=== PATIENT | female | born 1960 | race Hispanic/Latino ===

== ENCOUNTER 2018-08-11 08:27 | Emergency (ER) | payer SELFPAY ==
[2018-08-11 09:20] LABS: BASOPHILS % (AUTO) 0.4 % (0.0-5.0); EOSINOPHILS % (AUTO) 0.5 % (0.0-8.0); HEMATOCRIT 37.7 % (36-48); LYMPHOCYTES % (AUTO) 36.1 % (21.0-51.0); MEAN CORPUSCULAR HEMOGLOBIN 31.3 pg (27.0-33.0); MEAN CORPUSCULAR VOLUME 92.1 fL (79-99); MONOCYTES % (AUTO) 9.9 % (3.0-13.0); NEUTROPHILS % (AUTO) 53.1 % (40.0-77.0); NUCLEATED RED BLOOD CELLS 0.1 % (0.0-0.19); PLATELET COUNT (AUTO) 304 K/uL (130-400); RED BLOOD CELL COUNT(AUTO) 4.09 MIL/uL (4.00-5.50); RED CELL DISTRIBUTION WIDTH 14.5 % (11.0-15.5); WHITE BLOOD COUNT (AUTO) 6.7 K/uL (4.8-10.8)
[2018-08-11 09:30] LABS: INR 1.04 (0.85-1.15); PARTIAL THROMBOPLASTIN TIME 25.7 SEC (26.3-35.5); PROTHROMBIN TIME 10.9 SEC (9.6-11.6)
[2018-08-11 09:38] LABS: POTASSIUM 3.7 mmol/L (3.5-5.1)
[2018-08-11 09:43] LABS: ALBUMIN 3.2 g/dL (3.5-5.0); BILIRUBIN,TOTAL 0.4 mg/dL (0.2-1.0); TOTAL PROTEIN, SERUM 9.1 g/dL (6.0-8.3)
[2018-08-11] MEDS ORDERED: TRAMADOL HCL 50 MG TABLET ONE (09:58)
[2018-08-11 10:10] LABS: APPEARANCE,URINE Clear (CLEAR); BILIRUBIN,URINE Negative (NEGATIVE); COLOR,URINE Yellow (YELLOW); GLUCOSE, URINE (UA) Negative (NEGATIVE); KETONES,URINE Negative (NEGATIVE); LEUKOCYTE ESTERASE ,URINE Small (NEGATIVE); NITRATE,URINE Positive (NEGATIVE); OCCULT BLOOD,URINE Moderate (NEGATIVE); PH,URINE 6.5 (5.0-8.0); PROTEIN,URINE Negative (NEGATIVE)
[2018-08-11 10:35] LABS: BACTERIA,URINE Many /HPF (None Seen)
== END 2018-08-11 10:34 | disposition home or self-care (01) ==
LOC: EDH 08:27
DX: M71.21 Synovial cyst of popliteal space [Baker], right knee (principal); R03.0 Elevated blood-pressure reading, without diagnosis of hypertension; M13.861 Other specified arthritis, right knee; R79.89 Other specified abnormal findings of blood chemistry; Z90.710 Acquired absence of both cervix and uterus
CPT/HCPCS: 36415; 73562; 80053; 81001; 82550; 84484; 85025; 85610; 85730; 93005; 93971

== ENCOUNTER 2019-01-12 18:30 | Inpatient (IN) | payer OTHER ==
[~2019-01-12] VITALS: Ht 157.5 cm; Wt 87.4 kg
[~2019-01-12 18:30] MED LIST: ETOMIDATE 2 MG/ML 10 ML VIAL IVP ONE
[2019-01-12 18:56] LABS: BASOPHILS % (AUTO) 0.2 % (0.0-5.0); EOSINOPHILS % (AUTO) 0.2 % (0.0-8.0); HEMATOCRIT 37.2 % (36-48); LYMPHOCYTES % (AUTO) 6.4 % (21.0-51.0); MEAN CORPUSCULAR HEMOGLOBIN 31.1 pg (27.0-33.0); MEAN CORPUSCULAR HGB CONC 33.4 g/dL (32.0-36.0); MEAN CORPUSCULAR VOLUME 92.8 fL (79-99); MONOCYTES % (AUTO) 2.5 % (3.0-13.0); NEUTROPHILS % (AUTO) 90.7 % (40.0-77.0); PLATELET COUNT (AUTO) 290 K/uL (130-400); RED BLOOD CELL COUNT(AUTO) 4.01 MIL/uL (4.00-5.50); RED CELL DISTRIBUTION WIDTH 13.4 % (11.0-15.5); WHITE BLOOD COUNT (AUTO) 7.2 K/uL (4.8-10.8)
[2019-01-12 19:06] LABS: CARBON DIOXIDE 19 mmol/L (21-32); CHLORIDE 105 mmol/L (101-111); CREATININE 1.6 mg/dL (0.5-1.5); GLOMERULAR FILTR. RATE CALC 35 mL/min (>60); GLUCOSE,RANDOM 97 mg/dL (70-105); POTASSIUM 3.1 mmol/L (3.5-5.1); SODIUM SERUM 138 mmol/L (136-145); UREA NITROGEN, BLOOD 28 mg/dL (7-18)
[2019-01-12 19:19] LABS: ALANINE AMINOTRANSFERASE 69 U/L (12-78); ALBUMIN 2.7 g/dL (3.5-5.0); ASPARTATE AMINOTRANSFERASE 77 U/L (10-37); BILIRUBIN,TOTAL 0.6 mg/dL (0.2-1.0); CREATINE KINASE, TOTAL 62 U/L (21-232); MYOGLOBIN 58 ng/mL (10-92); TOTAL PROTEIN, SERUM 9.8 g/dL (6.0-8.3); TROPONIN I < 0.04 ng/mL (0.00-0.06)
[2019-01-12 19:23] LABS: INR 1.09 (0.85-1.15); PARTIAL THROMBOPLASTIN TIME 26.8 SEC (26.3-35.5); PROTHROMBIN TIME 11.4 SEC (9.6-11.6)
[2019-01-12] MEDS ORDERED: SODIUM CHLORIDE 0.9% 1000ML 2,000 ML IV ONE (19:40)
[2019-01-12] MEDS ORDERED: SODIUM CHLORIDE 0.9% 500ML 500 ML IV ONE (19:40)
[2019-01-12] MEDS ORDERED: CEFTRIAXONE SODIUM 1 GM ONE (19:41)
[2019-01-12] MEDS ORDERED: AZITHROMYCIN 250 MG TABLET PO ONE (19:52)
[2019-01-12 19:56] LABS: APPEARANCE,URINE CLOUDY (CLEAR); BILIRUBIN,URINE SMALL (NEGATIVE); COLOR,URINE YELLOW (YELLOW); GLUCOSE, URINE (UA) NEGATIVE (NEGATIVE); KETONES,URINE NEGATIVE (NEGATIVE); LEUKOCYTE ESTERASE ,URINE MODERATE (NEGATIVE); NITRATE,URINE POSITIVE (NEGATIVE); OCCULT BLOOD,URINE MODERATE (NEGATIVE); PROTEIN,URINE 30 mg/dL (NEGATIVE); UROBILINOGEN,URINE 0.2 mg/dL (0.2-1.0)
[2019-01-12 20:34] LABS: BACTERIA,URINE Moderate /HPF (None Seen); MUCUS,URINE Few LPF (None Seen); SQUAMOUS EPITHELIAL CELL,UR Moderate /HPF (0-2)
[2019-01-12] MEDS ORDERED: ACETAMINOPHEN EXTRA STRENGTH 500 MG TABLET ONE (20:56)
[2019-01-12] MEDS ORDERED: HYDRALAZINE HCL 20 MG/ML VIAL IV PRN (21:15)
[2019-01-12] MEDS ORDERED: ACETAMINOPHEN 325 MG TAB PO PRN (21:15)
[2019-01-12] MEDS ORDERED: MORPHINE SULFATE 4 MG/1ML SYG IV PRN (21:15)
[2019-01-12] MEDS ORDERED: ONDANSETRON HCL 4 MG/2 ML VIAL IV PRN (21:15)
[2019-01-12] MEDS ORDERED: CEFTRIAXONE SODIUM 1 GM IV SCH (21:15)
[2019-01-12] MEDS: AZITHROMYCIN 500MG+NS 250ML 250 ML IV SCH (21:45)
[2019-01-12 22:26] VITALS: BP 107/52
[2019-01-12] MEDS: SODIUM CHLORIDE 0.9% 1000ML 1,000 ML IV SCH (22:28)
[2019-01-13] VITALS (51 sets, daily range): BP systolic 66–167; BP diastolic 42–120
[2019-01-13] MEDS ORDERED: IPRATROPIUM/ALBUTEROL SULFATE 3 ML SOLUTION IH ONE (01:12)
[2019-01-13] MEDS: POTASSIUM CHLORIDE 20MEQ/100ML 100 ML IV PRN ×2 (01:26→06:17)
[2019-01-13] MEDS: IPRATROPIUM/ALBUTEROL SULFATE 3 ML SOLUTION IH SCH ×5 (01:28→23:18)
[2019-01-13 06:20] LABS: BASOPHILS % (AUTO) 0.2 % (0.0-5.0); HEMATOCRIT 32.6 % (36-48); LYMPHOCYTES % (AUTO) 12.6 % (21.0-51.0); MEAN CORPUSCULAR HEMOGLOBIN 31.2 pg (27.0-33.0); MEAN CORPUSCULAR HGB CONC 33.5 g/dL (32.0-36.0); MEAN CORPUSCULAR VOLUME 93.2 fL (79-99); MONOCYTES % (AUTO) 1.6 % (3.0-13.0); NEUTROPHILS % (AUTO) 85.6 % (40.0-77.0); PLATELET COUNT (AUTO) 267 K/uL (130-400); RED BLOOD CELL COUNT(AUTO) 3.49 MIL/uL (4.00-5.50); RED CELL DISTRIBUTION WIDTH 14.3 % (11.0-15.5); WHITE BLOOD COUNT (AUTO) 6.9 K/uL (4.8-10.8)
--- NOTE | 2019-01-13 06:26 | NUR ---
critical lab results paged md/cook chili content analyst for hospitalist regarding lactic acid level of 4.5. previous lab result at around 2230 was 3.0 awaiting call back. pt running ns @078
[2019-01-13 06:37] LABS: ALBUMIN 2.1 g/dL (3.5-5.0); BILIRUBIN,TOTAL 0.6 mg/dL (0.2-1.0); CREATININE 2.1 mg/dL (0.5-1.5); POTASSIUM 4.1 mmol/L (3.5-5.1); TOTAL PROTEIN, SERUM 8.2 g/dL (6.0-8.3)
--- NOTE | 2019-01-13 06:41 | NUR ---
critical lab results page 2nd time repaged racing driver/md geriatric nurse practitioner for hospitalist to inform them of recent lactic acid 4.5 awaiting call back patient has been afebrile all night vss, will continue to monitor
--- NOTE | 2019-01-13 06:45 | NUR ---
returned page dr. joseph returned page, informed of recent lactic acid level of 4.5 patient has been afebrile throughout the night, vss informed to continue to monitor and notify dr lino in am rounds
[2019-01-13] MEDS ORDERED: MEROPENEM 1 GM VIAL IVP SCH (08:45)
[2019-01-13] MEDS ORDERED: RENAL DOSE IV SCH (08:45)
[2019-01-13 08:56] LABS: HEMOGLOBIN A1C 5.2 % (4.0-6.0)
[2019-01-13] MEDS ORDERED: FAMOTIDINE/PF 20 MG/2 ML VIAL IV SCH (09:00)
[2019-01-13] MEDS ORDERED: ENOXAPARIN SODIUM 30 MG/0.3 ML SQ SCH (09:00)
--- NOTE | 2019-01-13 09:00 | NUR ---
PATIENT AND FAMILY MADE AWARE THAT AT THIS POINT, BIPAP IS A LAST EFFORT BEFORE INTUBATION. CONSIDERING PATIENT IS BREATHING IN 40'S RR. MORE THAN LIKELY WILL NEED INTUBATION AT A LATER TIME. FAMILY WANTS INTUBATION. HOWEVER, PATIENT IS OF SOUND MIND AND STATED SHE DID NOT WANT TO BE INTUBATED. FAMILY MADE AWARE OF THAT WE WILL HONOR PATIENTS WISHES EVEN THOUGH SHE IS FULL CODE. WELL , WITHOUT PROPER INTERVENTION ADDRESSING THE RESPIRATORY ISSUE. ANY OTHER INTERVENTION IS ULTIMATELY FUTILE. FAMILY STATED THEY WILL SPEAK WITH PATIENT ONCE FATHER/SPOUSE ARRIVES.
[2019-01-13] MEDS: BENZONATATE 100 MG CAPSULE PO SCH ×3 (09:44→20:44)
[2019-01-13] MEDS: MEROPENEM 500 MG VIAL IVP SCH ×2 (09:46→20:49)
[2019-01-13] MEDS: SODIUM CHLORIDE 0.9% 1000ML 1,000 ML IV SCH (09:50)
[2019-01-13] MEDS: LIDOCAINE HCL-MPF 1% 2ML VIAL IV PRN (09:53)
[2019-01-13 10:20] LABS: ABG HCO3 14.1 mmol/L (21.0-28.0); ABG OXYGEN SATURATION 87.9 % (95.0-99.0); ABG PCO2 27 mmHg (32-45)
--- NOTE | 2019-01-13 10:57 | NUR ---
Nutrition Intervention: Nutrition consult. Unable to speak with patient during RD visit attempt- Pt. in resp. distress and being placed on Bipap. Pt. on Heart Healthy diet with 25% p.o.intake this morning, as noted in EMR. Labs reviewed(Alb 2.1, BUN 33, Creat 2.1, GFR 26, BG 63). Noted renal labs increasing. LBM: 01/12/19. SR-21, elastic. BMI: 39.1, Obesity grade 2. Recommendations: 1) Rec. Heart Healthy Renal Non dialysis diet. 2) Rec. Nepro supp. QD with Lunch meal. 3) Continue to monitor pt's nutritional status. 4) Consult RD as nutrition concerns arise. Addendum: 01/13/19 at [address] Amended: Links added.
--- NOTE | 2019-01-13 11:55 | NUR ---
D/C PLAN CM spoke to pts son named Jv, regarding d/c planning. States pt was previously ind with ADL's. Denies having any DME at home. States pt lives with spouse. CM provided community resources packet. Plan to home. CM to f/u for possible oxygen and DME needs. Pt currently on bipap. Addendum: 01/13/19 at 1157 by CJ TIRADO CM Amended: Links added.
[2019-01-13 12:20] LABS: ABG BASE EXCESS -8.7 mmol/L (-2.0-3.0); ABG OXYGEN SATURATION 96.4 % (95.0-99.0); ABG PCO2 27 mmHg (32-45)
--- NOTE | 2019-01-13 13:21 | NUR ---
PATIENT OF SOUND MIND, STATED OK TO INTUBATE IF NECESSARY. DAUGHTER IN LAW AT BEDSIDE WELL PRIMARY NURSE.
--- NOTE | 2019-01-13 13:35 | NUR ---
PT WAS ADMITED TO ROOM 210 VIA BED AND PT WAS PLACED ON BIPAP PRESCRIBED. PT APPEARS TO BE ANXIOUS AND WANTING TO BE INTUBATED. F/C WAS INSERTED AND PT APPEARS TO BE MORE COMFORTABLE AND STILL REQUESTING TO BE INTUBATED STATES THAT SHE IS GETTING TIRED. DR. AHUJA WAS NOTIFIED AND ORDERS NOTED. RESPIRATORY WAS NOTIFIED AND PT WAS PREPARED FOR INTUBATION.
[2019-01-13] MEDS ORDERED: PROPOFOL 1000 MG/100 ML 100 ML IV ONE (14:23)
[2019-01-13] MEDS ORDERED: MIDAZOLAM HCL 1 MG/ML 2ML VIAL ONE ×2 (14:32→14:33)
[2019-01-13] MEDS ORDERED: FENTANYL CITRATE PF 50 MCG/1 ML 2ML VIAL ONE (14:32)
--- NOTE | 2019-01-13 14:34 | NUR ---
PT RECEIVED FENTANYL AND VERSED SEDATION AND DR. AHUJA INTUBATED AND PT WAS PLACED ON VENTILATOR PRESCRIBED. PT TOLERATED INTUBATION WITHOUT ANY PROBLEMS. CENTRAL LINE WAS PLACED AND N/G TUBE ALSO WAS PLACED PRIOR TO CHEST X-RAY BEING OBTAINED.
[2019-01-13] MEDS ORDERED: PHENYLEPHRINE HCL 50 MG in SODIUM CHLORIDE 0.9% 250 ML IV PRN (15:00)
--- NOTE | 2019-01-13 15:00 | NUR ---
PT HAD UPPER PARTIAL DENTURES AND WERE GIVEN TO AND ADVISED HIM TO TAKE THEM HOME.
[2019-01-13] MEDS ORDERED: FENTANYL CITRATE PF 50 MCG/1 ML 2ML VIAL IVP SCH (15:15)
[2019-01-13] MEDS ORDERED: MIDAZOLAM HCL 1 MG/ML 2ML VIAL IVP SCH (15:15)
--- NOTE | 2019-01-13 15:30 | NUR ---
NOTIFIED DR. Jessika HERNANDEZ RE:CONSULT, VERBALIZED UNDERSTANDING. NO NEW ORDERS RECEIVED AT THIS TIME.
--- NOTE | 2019-01-13 16:00 | NUR ---
PT HAD RENAL ULTRASOUND AND 2D ECHO WAS OBTAINED ORDERED. FAMILY MEMBERS HAVE BEEN COMING IN TO SEE PT AND HAVE BEEN GIVEN UPDATE.
[2019-01-13 16:17] LABS: ABG BASE EXCESS -7.1 mmol/L (-2.0-3.0); ABG HCO3 17.3 mmol/L (21.0-28.0); ABG OXYGEN SATURATION 97.4 % (95.0-99.0); ABG PCO2 32 mmHg (32-45)
[2019-01-13] MEDS: MIDAZOLAM 100MG-0.9% NS 100ML 100 ML IV PRN (17:35)
[2019-01-13] MEDS: FENTANYL 2500MCG+NS 250ML 250 ML IV PRN (17:35)
[2019-01-13] MEDS: SODIUM BICARB 8.4% 50ML SYRING 150 MEQ in DEXTROSE 5%-WATER 1,000 ML IV SCH ×2 (17:37→20:49)
[2019-01-13] MEDS: ACETAMINOPHEN ELIXIR 650 MG/20.3 ML UDCUP NG PRN (18:22)
--- NOTE | 2019-01-13 19:47 | NUR ---
Assumed care for patient at 1840, VS as charted, intubated and sedated with fentanyl and versed infusing into right IJ, fong in place and SCD applied. Patient looks comfortable, all family questions answered.
[2019-01-13] MEDS: AZITHROMYCIN 500MG+NS 250ML 250 ML IV SCH (20:49)
[2019-01-14] VITALS (69 sets, daily range): BP systolic 74–135; BP diastolic 42–81
[2019-01-14] MEDS: ACETAMINOPHEN ELIXIR 650 MG/20.3 ML UDCUP NG PRN ×2 (00:04→10:13)
[2019-01-14 04:04] LABS: BASOPHILS % (AUTO) 0.2 % (0.0-5.0); EOSINOPHILS % (AUTO) 0.4 % (0.0-8.0); HEMATOCRIT 30.7 % (36-48); LYMPHOCYTES % (AUTO) 12.6 % (21.0-51.0); MEAN CORPUSCULAR HEMOGLOBIN 30.7 pg (27.0-33.0); MEAN CORPUSCULAR HGB CONC 33.4 g/dL (32.0-36.0); MONOCYTES % (AUTO) 1.9 % (3.0-13.0); NEUTROPHILS % (AUTO) 84.9 % (40.0-77.0); PLATELET COUNT (AUTO) 258 K/uL (130-400); RED BLOOD CELL COUNT(AUTO) 3.34 MIL/uL (4.00-5.50); WHITE BLOOD COUNT (AUTO) 13.9 K/uL (4.8-10.8)
[2019-01-14] MEDS: IPRATROPIUM/ALBUTEROL SULFATE 3 ML SOLUTION IH SCH ×4 (04:05→23:09)
[2019-01-14] MEDS: SODIUM BICARB 8.4% 50ML SYRING 150 MEQ in DEXTROSE 5%-WATER 1,000 ML IV SCH (04:15)
[2019-01-14 04:35] LABS: ALBUMIN 1.9 g/dL (3.5-5.0); BILIRUBIN,TOTAL 0.6 mg/dL (0.2-1.0); CREATININE 1.5 mg/dL (0.5-1.5); MAGNESIUM 1.3 mg/dL (1.80-2.40); PHOSPHORUS 3.2 mg/dL (2.5-4.9); POTASSIUM 3.4 mmol/L (3.5-5.1); TOTAL PROTEIN, SERUM 7.7 g/dL (6.0-8.3); URIC ACID 6.4 mg/dL (2.6-7.2)
[2019-01-14] MEDS ORDERED: POTASSIUM CHLORIDE 10MEQ/100ML 100 ML IV PRN (05:00)
[2019-01-14] MEDS ORDERED: LIDOCAINE HCL-MPF 1% 2ML VIAL IV PRN (05:00)
[2019-01-14] MEDS ORDERED: POTASSIUM CHLORIDE 10% ELIXIR 20 MEQ/15 ML UDCUP PO PRN (05:00)
[2019-01-14] MEDS ORDERED: POTASSIUM CHLORIDE 20 MEQ ERTAB PO PRN (05:00)
[2019-01-14] MEDS ORDERED: MAGNESIUM 2GM PREMIX 50ML 50 ML IV ONE (05:01)
[2019-01-14] MEDS: POTASSIUM CHLORIDE 20MEQ/100ML 100 ML IV PRN (05:03)
[2019-01-14 05:35] LABS: ERYTHROCYTE SEDIMENTATION RATE 85 MM/HR (0-30)
--- NOTE | 2019-01-14 07:30 | NUR ---
Dr. Robins at bedside for rounding. Reviewed plan of care for the day. Orders given inserted. Addendum: 01/14/19 at 0932 by ALOK JJ RN Dr. Robins ordered for the pneumococcal vaccine to be held until the day of discharge
[2019-01-14 07:58] LABS: ABG BASE EXCESS 2.9 mmol/L (-2.0-3.0); ABG HCO3 26.6 mmol/L (21.0-28.0); ABG OXYGEN SATURATION 94.1 % (95.0-99.0); ABG PCO2 38 mmHg (32-45)
--- NOTE | 2019-01-14 08:30 | NUR ---
Patient during sedation vacation was able to follow commands and nod yes/no to questions appropriately.
[2019-01-14] MEDS: FAMOTIDINE/PF 20 MG/2 ML VIAL IV SCH ×2 (08:48→21:08)
[2019-01-14] MEDS: THIAMINE HCL 100 MG/ML 2ML VIAL IVP SCH (08:48)
[2019-01-14] MEDS: MEROPENEM 500 MG VIAL IVP SCH (08:48)
[2019-01-14] MEDS: BENZONATATE 100 MG CAPSULE PO SCH ×3 (08:49→21:00)
[2019-01-14] MEDS: ENOXAPARIN SODIUM 40 MG/0.4 ML SYRINGE SQ SCH (08:49)
[2019-01-14] MEDS ORDERED: PNEUMOCOCCAL VACCINE POLYVALENT 0.5 ML/VIAL [PPV] IM ONE (09:00)
[2019-01-14] MEDS ORDERED: VANCOMYCIN PROTOCOL PER PHARMACY IV SCH (10:45)
[2019-01-14] MEDS ORDERED: COMPOUND IV REFRIGERATED 1 EACH IVSOLN MISC PRN (11:00)
[2019-01-14] MEDS: METOCLOPRAMIDE 10 MG/2 ML VIAL IVP SCH ×2 (11:21→18:16)
[2019-01-14] MEDS: CEFTRIAXONE SODIUM 1 GM IVP SCH (11:21)
[2019-01-14] MEDS ORDERED: COMPOUND PO MISCELLANEOUS 1 EACH MISC MISC PRN (11:30)
[2019-01-14] MEDS: VANCOMYCIN 1.25 GM in SODIUM CHLORIDE 0.9% 250 ML IV SCH (11:39)
--- NOTE | 2019-01-14 13:00 | NUR ---
Patient placed on a cooling blanket as temperature could not be controlled with ICE packs and Tylenol.
[2019-01-14] MEDS: MIDAZOLAM 100MG-0.9% NS 100ML 100 ML IV PRN (16:36)
[2019-01-14] MEDS: FENTANYL 2500MCG+NS 250ML 250 ML IV PRN (16:37)
[2019-01-14] MEDS: NOREPINEPHRINE 4MG/NS 250ML 250 ML IV SCH (17:45)
[2019-01-14] MEDS ORDERED: OSELTAMIVIR PHOSPHATE 75 MG CAP PO SCH (21:00)
[2019-01-14] MEDS: AZITHROMYCIN 500MG+NS 250ML 250 ML IV SCH (21:08)
[2019-01-14] MEDS: OSELTAMIVIR SUSP 15 MG/ML (6 CAPS/29ML) PO SCH ×2 (21:09)
[2019-01-15] VITALS (55 sets, daily range): BP systolic 79–135; BP diastolic 41–85
[2019-01-15] MEDS: NOREPINEPHRINE 4MG/NS 250ML 250 ML IV SCH ×2 (00:49→14:12)
[2019-01-15] MEDS: METOCLOPRAMIDE 10 MG/2 ML VIAL IVP SCH ×4 (00:52→17:41)
[2019-01-15 04:13] LABS: BASOPHILS % (AUTO) 0.2 % (0.0-5.0); EOSINOPHILS % (AUTO) 1.3 % (0.0-8.0); HEMATOCRIT 30.3 % (36-48); LYMPHOCYTES % (AUTO) 9.4 % (21.0-51.0); MEAN CORPUSCULAR HEMOGLOBIN 30.5 pg (27.0-33.0); MEAN CORPUSCULAR HGB CONC 33.3 g/dL (32.0-36.0); MEAN CORPUSCULAR VOLUME 91.7 fL (79-99); MONOCYTES % (AUTO) 2.9 % (3.0-13.0); NEUTROPHILS % (AUTO) 86.2 % (40.0-77.0); PLATELET COUNT (AUTO) 257 K/uL (130-400); RED BLOOD CELL COUNT(AUTO) 3.31 MIL/uL (4.00-5.50); RED CELL DISTRIBUTION WIDTH 14.2 % (11.0-15.5); WHITE BLOOD COUNT (AUTO) 19.9 K/uL (4.8-10.8)
[2019-01-15 04:25] LABS: ALBUMIN 1.8 g/dL (3.5-5.0); BILIRUBIN,TOTAL 0.6 mg/dL (0.2-1.0); CREATININE 1.1 mg/dL (0.5-1.5); MAGNESIUM 2.1 mg/dL (1.80-2.40); PHOSPHORUS 2.7 mg/dL (2.5-4.9); POTASSIUM 3.4 mmol/L (3.5-5.1); TOTAL PROTEIN, SERUM 7.8 g/dL (6.0-8.3)
[2019-01-15 04:32] LABS: % IRON SATURATION 29.1 % (22-44)
[2019-01-15] MEDS: POTASSIUM CHLORIDE 20MEQ/100ML 100 ML IV PRN (04:59)
[2019-01-15] MEDS: IPRATROPIUM/ALBUTEROL SULFATE 3 ML SOLUTION IH SCH ×4 (06:31→23:18)
[2019-01-15] MEDS: OSELTAMIVIR SUSP 15 MG/ML (6 CAPS/29ML) PO SCH ×4 (08:37→20:26)
[2019-01-15] MEDS: BENZONATATE 100 MG CAPSULE PO SCH ×3 (08:37→20:25)
[2019-01-15] MEDS: ENOXAPARIN SODIUM 40 MG/0.4 ML SYRINGE SQ SCH (08:37)
[2019-01-15] MEDS: THIAMINE HCL 100 MG/ML 2ML VIAL IVP SCH (08:37)
[2019-01-15] MEDS: FAMOTIDINE/PF 20 MG/2 ML VIAL IV SCH ×2 (08:37→20:25)
--- NOTE | 2019-01-15 08:38 | NUR ---
PO medication and Lovenox held due to pending bedside JUANIS scheduled for 1200 today
--- NOTE | 2019-01-15 10:35 | NUR ---
Dr. Armstrong office was called to follow up if patients JUANIS was going to be done today. It was reported that Dr. armstrong would be completing the JUANIS around mid afternoon.
[2019-01-15] MEDS: CEFTRIAXONE SODIUM 1 GM IVP SCH (11:04)
[2019-01-15] MEDS: VANCOMYCIN 1.25 GM in SODIUM CHLORIDE 0.9% 250 ML IV SCH (14:18)
[2019-01-15] MEDS: ACETAMINOPHEN ELIXIR 650 MG/20.3 ML UDCUP NG PRN (17:41)
[2019-01-15] MEDS: MIDAZOLAM 100MG-0.9% NS 100ML 100 ML IV PRN (18:13)
[2019-01-15] MEDS: AZITHROMYCIN 500MG+NS 250ML 250 ML IV SCH (21:17)
[2019-01-15] MEDS: FENTANYL 2500MCG+NS 250ML 250 ML IV PRN (22:10)
[2019-01-15] MEDS ORDERED: DEXTROSE 50%-WATER 50 ML DISP.SYRIN IV ONE (23:58)
[2019-01-16] VITALS (92 sets, daily range): BP systolic 70–162; BP diastolic 25–91
[2019-01-16] MEDS ORDERED: GLUCAGON 1MG KIT 1 MG ML IM PRN
[2019-01-16] MEDS: METOCLOPRAMIDE 10 MG/2 ML VIAL IVP SCH ×5 (00:01→23:19)
[2019-01-16 03:41] LABS: BASOPHILS % (AUTO) 0.2 % (0.0-5.0); EOSINOPHILS % (AUTO) 2.6 % (0.0-8.0); HEMATOCRIT 31.1 % (36-48); LYMPHOCYTES % (AUTO) 7.7 % (21.0-51.0); MEAN CORPUSCULAR HEMOGLOBIN 31.1 pg (27.0-33.0); MEAN CORPUSCULAR HGB CONC 33.5 g/dL (32.0-36.0); MEAN CORPUSCULAR VOLUME 92.7 fL (79-99); MONOCYTES % (AUTO) 6.8 % (3.0-13.0); NEUTROPHILS % (AUTO) 82.7 % (40.0-77.0); NUCLEATED RED BLOOD CELLS 0.1 % (0.0-0.19); PLATELET COUNT (AUTO) 265 K/uL (130-400); RED BLOOD CELL COUNT(AUTO) 3.35 MIL/uL (4.00-5.50)
[2019-01-16 03:57] LABS: ABG BASE EXCESS 0.2 mmol/L (-2.0-3.0); ABG HCO3 23.9 mmol/L (21.0-28.0); ABG OXYGEN SATURATION 98.4 % (95.0-99.0); ABG PCO2 36 mmHg (32-45)
[2019-01-16 04:13] LABS: MAGNESIUM 2.1 mg/dL (1.80-2.40); PHOSPHORUS 2.4 mg/dL (2.5-4.9); POTASSIUM 3.1 mmol/L (3.5-5.1)
[2019-01-16] MEDS: POTASSIUM CHLORIDE 20MEQ/100ML 100 ML IV PRN ×2 (04:24→06:35)
--- NOTE | 2019-01-16 05:30 | NUR ---
TEMP PATIENT BEGINNING TO SHIVER. COOLING BLANKET SET TO MONITOR. CURRENT TEMPERATURE 98.5
[2019-01-16] MEDS: DEXTROSE 50%-WATER 50 ML DISP.SYRIN IV PRN ×4 (05:54→17:33)
[2019-01-16] MEDS: IPRATROPIUM/ALBUTEROL SULFATE 3 ML SOLUTION IH SCH ×4 (06:13→23:20)
[2019-01-16] MEDS ORDERED: POTASSIUM PHOS 15 mMOL+NS250ML 250 ML IV PRN ×2 (07:00→07:15)
--- NOTE | 2019-01-16 07:00 | NUR ---
MD VISIT Dr. Ac in to see pt, update given. Plan of care discussed.
[2019-01-16] MEDS: FAMOTIDINE/PF 20 MG/2 ML VIAL IV SCH ×2 (08:00→21:09)
[2019-01-16] MEDS: THIAMINE HCL 100 MG/ML 2ML VIAL IVP SCH (08:04)
[2019-01-16] MEDS: ENOXAPARIN SODIUM 40 MG/0.4 ML SYRINGE SQ SCH (08:05)
[2019-01-16] MEDS: BENZONATATE 100 MG CAPSULE PO SCH ×3 (08:05→21:09)
[2019-01-16] MEDS: NOREPINEPHRINE 4MG/NS 250ML 250 ML IV SCH (08:07)
[2019-01-16] MEDS: OSELTAMIVIR SUSP 15 MG/ML (6 CAPS/29ML) PO SCH ×4 (08:09→21:09)
[2019-01-16] MEDS: CEFTRIAXONE SODIUM 1 GM IVP SCH (10:38)
--- NOTE | 2019-01-16 11:42 | NUR ---
RD FOLLOW UP DIET: NPO; PENDING PROCEDURE. PT PREVIOUSLY ON VITAL AF 1.2 AT 20ML/HR. PT TOLERATING TF WELL PER RN. NO RESIDUALS NOTED. LBM: 01/[address] RECOMMENDS TO INCREASE VITAL AF 1.2 RATE. GOAL IS 40ML/HR TO MEET NUTRITIONAL NEEDS FORMULA PROVIDES 1152KCAL/D, 72GM/D, 779 WATER FLUSH WITH 230MLS Q6. TOTAL WATER IS 1899ML/D MONITOR LABS AND RESIDUALS RN NOTIFIED. RECOMMENDATIONS LEFT IN PT CHART. RD WILL CONTINUE TO MONITOR AND F/U NEEDED, THANK YOU. Addendum: 01/16/19 at [address] Amended: Links added.
[2019-01-16] MEDS: VANCOMYCIN 1.25 GM in SODIUM CHLORIDE 0.9% 250 ML IV SCH (12:03)
--- NOTE | 2019-01-16 14:15 | NUR ---
MD VISIT Dr. Bedoya in to see pt, new orders received and will carry out.
[2019-01-16] MEDS: MIDAZOLAM 100MG-0.9% NS 100ML 100 ML IV PRN (16:12)
--- NOTE | 2019-01-16 17:00 | NUR ---
JUANIS Dr. Armstrong in to see pt, JUANIS attempted but unsuccessful. Dr. Bedoya made aware by Boo, echo-speech therapist technician.
[2019-01-16] MEDS: AZITHROMYCIN 500MG+NS 250ML 250 ML IV SCH (21:10)
[2019-01-16] MEDS: FENTANYL 2500MCG+NS 250ML 250 ML IV PRN (23:11)
[2019-01-17] VITALS (94 sets, daily range): BP systolic 52–155; BP diastolic 21–102
[2019-01-17] MEDS: MIDAZOLAM 100MG-0.9% NS 100ML 100 ML IV PRN ×2 (00:20→19:26)
[2019-01-17] MEDS: NOREPINEPHRINE 4MG/NS 250ML 250 ML IV SCH (02:51)
[2019-01-17 04:17] LABS: BASOPHILS % (AUTO) 0.2 % (0.0-5.0); EOSINOPHILS % (AUTO) 0.9 % (0.0-8.0); HEMATOCRIT 32.9 % (36-48); LYMPHOCYTES % (AUTO) 8.9 % (21.0-51.0); MEAN CORPUSCULAR HEMOGLOBIN 30.5 pg (27.0-33.0); MEAN CORPUSCULAR VOLUME 92.6 fL (79-99); MONOCYTES % (AUTO) 11.5 % (3.0-13.0); NEUTROPHILS % (AUTO) 78.5 % (40.0-77.0); PLATELET COUNT (AUTO) 315 K/uL (130-400); RED BLOOD CELL COUNT(AUTO) 3.55 MIL/uL (4.00-5.50); RED CELL DISTRIBUTION WIDTH 13.8 % (11.0-15.5)
[2019-01-17 04:42] LABS: MAGNESIUM 1.8 mg/dL (1.80-2.40); PHOSPHORUS 4.5 mg/dL (2.5-4.9); POTASSIUM 3.7 mmol/L (3.5-5.1)
[2019-01-17] MEDS: POTASSIUM CHLORIDE 20MEQ/100ML 100 ML IV PRN (04:58)
[2019-01-17] MEDS: METOCLOPRAMIDE 10 MG/2 ML VIAL IVP SCH ×4 (05:46→23:30)
[2019-01-17] MEDS: IPRATROPIUM/ALBUTEROL SULFATE 3 ML SOLUTION IH SCH ×4 (06:16→23:24)
[2019-01-17] MEDS: OSELTAMIVIR SUSP 15 MG/ML (6 CAPS/29ML) PO SCH ×4 (08:28→21:23)
[2019-01-17] MEDS: FAMOTIDINE/PF 20 MG/2 ML VIAL IV SCH ×2 (08:29→21:23)
[2019-01-17] MEDS: THIAMINE HCL 100 MG/ML 2ML VIAL IVP SCH (08:29)
[2019-01-17] MEDS: ENOXAPARIN SODIUM 40 MG/0.4 ML SYRINGE SQ SCH (08:35)
[2019-01-17] MEDS: BENZONATATE 100 MG CAPSULE PO SCH ×3 (08:36→21:24)
[2019-01-17] MEDS: CEFTRIAXONE SODIUM 1 GM IVP SCH (11:21)
[2019-01-17] MEDS: DEXTROSE 50%-WATER 50 ML DISP.SYRIN IV PRN (11:22)
[2019-01-17] MEDS: DOXYCYCLINE 100MG+NS 250ML 250 ML IV SCH ×2 (12:39→23:43)
[2019-01-17] MEDS: VANCOMYCIN 1.25 GM in SODIUM CHLORIDE 0.9% 250 ML IV SCH (12:40)
--- NOTE | 2019-01-17 13:30 | NUR ---
Nena visit Dr. Moya made rounds chart reviewed. Patient seen at bedside echo was done at bedside. New orders received.
[2019-01-17] MEDS: VANCOMYCIN 1GM+NS 250ML 250 ML IV SCH (21:24)
[2019-01-18] VITALS (45 sets, daily range): BP systolic 80–170; BP diastolic 52–107
[2019-01-18] MEDS: FENTANYL 2500MCG+NS 250ML 250 ML IV PRN (02:58)
[2019-01-18 04:05] LABS: HEMATOCRIT 29.1 % (36-48); MEAN CORPUSCULAR HEMOGLOBIN 31.1 pg (27.0-33.0); MEAN CORPUSCULAR HGB CONC 34.1 g/dL (32.0-36.0); MEAN CORPUSCULAR VOLUME 91.4 fL (79-99); PLATELET COUNT (AUTO) 295 K/uL (130-400); RED BLOOD CELL COUNT(AUTO) 3.18 MIL/uL (4.00-5.50); RED CELL DISTRIBUTION WIDTH 14.1 % (11.0-15.5); WHITE BLOOD COUNT (AUTO) 10.6 K/uL (4.8-10.8)
[2019-01-18 04:41] LABS: MAGNESIUM 1.7 mg/dL (1.80-2.40); PHOSPHORUS 3.7 mg/dL (2.5-4.9); POTASSIUM 3.5 mmol/L (3.5-5.1)
[2019-01-18] MEDS: MAGNESIUM 2GM PREMIX 50ML 50 ML IV PRN (04:46)
[2019-01-18] MEDS: POTASSIUM CHLORIDE 20MEQ/100ML 100 ML IV PRN (04:47)
[2019-01-18] MEDS: METOCLOPRAMIDE 10 MG/2 ML VIAL IVP SCH ×3 (05:00→18:37)
[2019-01-18] MEDS: IPRATROPIUM/ALBUTEROL SULFATE 3 ML SOLUTION IH SCH ×4 (06:14→23:30)
[2019-01-18] MEDS: FAMOTIDINE/PF 20 MG/2 ML VIAL IV SCH ×2 (08:29→20:58)
[2019-01-18] MEDS: THIAMINE HCL 100 MG/ML 2ML VIAL IVP SCH (08:30)
[2019-01-18] MEDS: VANCOMYCIN 1GM+NS 250ML 250 ML IV SCH ×2 (08:30→20:57)
[2019-01-18] MEDS: ENOXAPARIN SODIUM 40 MG/0.4 ML SYRINGE SQ SCH (08:31)
[2019-01-18] MEDS: BENZONATATE 100 MG CAPSULE PO SCH ×3 (08:32→20:59)
[2019-01-18] MEDS: OSELTAMIVIR SUSP 15 MG/ML (6 CAPS/29ML) PO SCH ×4 (08:44→20:58)
[2019-01-18] MEDS: DOXYCYCLINE 100MG+NS 250ML 250 ML IV SCH (12:05)
[2019-01-18] MEDS: CEFTRIAXONE SODIUM 1 GM IVP SCH (12:05)
[2019-01-18] MEDS: FUROSEMIDE 10 MG/ML 2ML VIAL IV SCH ×2 (14:39→20:58)
--- NOTE | 2019-01-18 15:28 | NUR ---
RD FOLLOW UP PT TOLERATING TF WELL. PATIENT CONTINUES TF: VITAL AF 1.2, RATE INCREASED TO 50ML/HR. CONTINUE FLUSHES OF 230ML Q6. CURRENT RATE MEETING PT DAILY NUTRITIONAL NEEDS. NO RESIDUALS NOTED. LBM: 01/13 NOTED. NO EDEMA, SKIN INTACT. RD WILL CONTINUE TO MONITOR AND FOLLOW UP, THANK YOU. Addendum: 01/18/19 at [address] Amended: Links added.
[2019-01-19] VITALS (42 sets, daily range): BP systolic 108–162; BP diastolic 54–86
[2019-01-19 04:06] LABS: BASOPHILS % (AUTO) 0.3 % (0.0-5.0); EOSINOPHILS % (AUTO) 2.4 % (0.0-8.0); HEMATOCRIT 30.4 % (36-48); LYMPHOCYTES % (AUTO) 8.6 % (21.0-51.0); MEAN CORPUSCULAR HGB CONC 33.8 g/dL (32.0-36.0); MEAN CORPUSCULAR VOLUME 91.8 fL (79-99); MONOCYTES % (AUTO) 6.1 % (3.0-13.0); NEUTROPHILS % (AUTO) 82.6 % (40.0-77.0); NUCLEATED RED BLOOD CELLS 0.1 % (0.0-0.19); PLATELET COUNT (AUTO) 303 K/uL (130-400); RED BLOOD CELL COUNT(AUTO) 3.31 MIL/uL (4.00-5.50); RED CELL DISTRIBUTION WIDTH 13.6 % (11.0-15.5); WHITE BLOOD COUNT (AUTO) 10.3 K/uL (4.8-10.8)
[2019-01-19 04:10] LABS: CREATININE 1.1 mg/dL (0.5-1.5); MAGNESIUM 1.9 mg/dL (1.80-2.40); PHOSPHORUS 4.8 mg/dL (2.5-4.9); POTASSIUM 3.4 mmol/L (3.5-5.1)
[2019-01-19] MEDS: POTASSIUM CHLORIDE 20MEQ/100ML 100 ML IV PRN ×3 (06:10→19:59)
[2019-01-19] MEDS: METOCLOPRAMIDE 10 MG/2 ML VIAL IVP SCH ×4 (06:10→19:00)
[2019-01-19] MEDS: IPRATROPIUM/ALBUTEROL SULFATE 3 ML SOLUTION IH SCH ×4 (06:13→23:26)
[2019-01-19] MEDS: BENZONATATE 100 MG CAPSULE PO SCH ×3 (09:00→20:24)
[2019-01-19] MEDS: ENOXAPARIN SODIUM 40 MG/0.4 ML SYRINGE SQ SCH (09:08)
[2019-01-19] MEDS: FUROSEMIDE 10 MG/ML 2ML VIAL IV SCH ×3 (09:10→20:23)
[2019-01-19] MEDS: THIAMINE HCL 100 MG/ML 2ML VIAL IVP SCH (09:11)
[2019-01-19] MEDS: FAMOTIDINE/PF 20 MG/2 ML VIAL IV SCH ×2 (09:11→20:23)
[2019-01-19 09:23] LABS: ABG BASE EXCESS 3.4 mmol/L (-2.0-3.0); ABG HCO3 26.4 mmol/L (21.0-28.0); ABG OXYGEN SATURATION 97.5 % (95.0-99.0); ABG PCO2 35 mmHg (32-45)
[2019-01-19] MEDS: DOXYCYCLINE 100MG+NS 250ML 250 ML IV SCH ×2 (12:14)
[2019-01-19] MEDS: CEFTRIAXONE SODIUM 1 GM IVP SCH (12:14)
[2019-01-19] MEDS: ACETAMINOPHEN ELIXIR 650 MG/20.3 ML UDCUP NG PRN (19:58)
[2019-01-20] VITALS (18 sets, daily range): BP systolic 101–140; BP diastolic 47–88
[2019-01-20] MEDS: DOXYCYCLINE 100MG+NS 250ML 250 ML IV SCH ×2 (00:27→16:00)
[2019-01-20] MEDS: METOCLOPRAMIDE 10 MG/2 ML VIAL IVP SCH ×4 (00:28→18:00)
[2019-01-20 04:05] LABS: ABG BASE EXCESS 4.2 mmol/L (-2.0-3.0); ABG HCO3 26.7 mmol/L (21.0-28.0); ABG OXYGEN SATURATION 97.7 % (95.0-99.0); ABG PCO2 34 mmHg (32-45)
[2019-01-20 05:06] LABS: HEMATOCRIT 29.5 % (36-48); MEAN CORPUSCULAR HEMOGLOBIN 30.7 pg (27.0-33.0); MEAN CORPUSCULAR HGB CONC 33.9 g/dL (32.0-36.0); MEAN CORPUSCULAR VOLUME 90.4 fL (79-99); PLATELET COUNT (AUTO) 361 K/uL (130-400); RED BLOOD CELL COUNT(AUTO) 3.26 MIL/uL (4.00-5.50); RED CELL DISTRIBUTION WIDTH 13.4 % (11.0-15.5); WHITE BLOOD COUNT (AUTO) 10.7 K/uL (4.8-10.8)
[2019-01-20 05:34] LABS: CREATININE 1.2 mg/dL (0.5-1.5); MAGNESIUM 1.8 mg/dL (1.80-2.40); PHOSPHORUS 4.7 mg/dL (2.5-4.9); POTASSIUM 3.6 mmol/L (3.5-5.1)
[2019-01-20 05:40] LABS: BAND NEUTROPHILS % (MANUAL) 2 % (0-2); BASOPHILS % (MANUAL) 2 % (0-2); LYMPHOCYTES % (MANUAL) 18 % (22-44); MONOCYTES % (MANUAL) 8 % (2-9); SEGMENTED NEUTROPHILS % 70 % (40-70)
[2019-01-20 05:41] LABS: MAN.DIFF COMMENT-IMPRESSION MANUAL DIFFERENTIAL
[2019-01-20] MEDS: MAGNESIUM 2GM PREMIX 50ML 50 ML IV PRN (06:01)
[2019-01-20] MEDS: POTASSIUM CHLORIDE 20MEQ/100ML 100 ML IV PRN (06:01)
[2019-01-20] MEDS: IPRATROPIUM/ALBUTEROL SULFATE 3 ML SOLUTION IH SCH ×4 (06:11→23:54)
[2019-01-20] MEDS ORDERED: GUAIFENESIN-CODEINE 5 ML SYRUP ONE (07:52)
[2019-01-20] MEDS ORDERED: VANCOMYCIN 1GM+NS 250ML 250 ML IV SCH (08:15)
--- NOTE | 2019-01-20 08:17 | NUR ---
CPAP trials on hold today as per Timothy Moncada RN Addendum: 01/20/19 at 0818 by AZAR [address]ENCE RT Amended: Links added.
[2019-01-20] MEDS: FAMOTIDINE/PF 20 MG/2 ML VIAL IV SCH ×2 (08:22→22:36)
[2019-01-20] MEDS: FUROSEMIDE 10 MG/ML 2ML VIAL IV SCH ×4 (08:22→19:45)
[2019-01-20] MEDS: THIAMINE HCL 100 MG/ML 2ML VIAL IVP SCH (08:23)
[2019-01-20] MEDS: CEFTRIAXONE SODIUM 1 GM IVP SCH (08:23)
[2019-01-20] MEDS: GUAIFENESIN-CODEINE 5 ML SYRUP PO PRN (08:24)
[2019-01-20] MEDS: BENZONATATE 100 MG CAPSULE PO SCH ×2 (08:25→14:00)
[2019-01-20] MEDS: ENOXAPARIN SODIUM 40 MG/0.4 ML SYRINGE SQ SCH (08:26)
[2019-01-20] MEDS ORDERED: PNEUMOCOCCAL VACCINE POLYVALENT 0.5 ML/VIAL [PPV] ONE (08:55)
[2019-01-20] MEDS: PROPOFOL 1000 MG/100 ML 100 ML IV PRN ×2 (09:22→15:55)
--- NOTE | 2019-01-20 09:50 | NUR ---
PT HAS BEEN MEDICATED FOR FEVER AND AT PRESENT PT HAS BEEN STARTED ON PROPOFOL AND ADVISED FAMILY THAT SHE WILL BE TURNED AND MADE COMFORTABLE. PT IS HAVING RAPID RESPIRATIONS AND WILL COUGH AND NG TUBE WAS CLAMPED DUE TO DIARRHEA STOOLS AND FEEDING SEEN COMING UP THRU N/G TUBE WITH HER COUGHS.
[2019-01-20] MEDS: ACETAMINOPHEN ELIXIR 650 MG/20.3 ML UDCUP NG PRN (10:02)
--- NOTE | 2019-01-20 14:16 | NUR ---
Nutrition Follow-up: [facility] CPAP trials on hold today, per RT notes. TF on hold due to pt. with loose stools which stopped when TF was stopped, per nurse Timothy Moncada. Pt. previously on TF with Vital AF@50ml/hr. Labs reviewed(Alb 1.8). LBM: 01/19/19, loose. SR-13, elastic. Recommendations: 1) Rec. TF with Pivot@20ml/hr, increasing rate by 5ml every 5 hrs to goal rate of 35ml/hr. 2) Flush with 150ml free water every 4 hrs. 3) Continue to monitor pt's nutritional status and TF tolerance. 4) Consult RD as nutrition concerns arise. Addendum: 01/20/19 at [address] Amended: Links added.
[2019-01-20] MEDS: ZOSYN 3.375GM+NS 50ML 50 ML IV SCH ×2 (16:01→21:26)
[2019-01-20] MEDS: VANCOMYCIN 750MG + NS 250 ML IV SCH ×2 (21:26)
[2019-01-21] VITALS (21 sets, daily range): BP systolic 96–142; BP diastolic 53–80
[2019-01-21] MEDS: DOXYCYCLINE 100MG+NS 250ML 250 ML IV SCH ×2 (00:18→15:20)
[2019-01-21] MEDS: METOCLOPRAMIDE 10 MG/2 ML VIAL IVP SCH ×4 (00:18→18:00)
[2019-01-21] MEDS: PROPOFOL 1000 MG/100 ML 100 ML IV PRN ×3 (00:27→21:54)
[2019-01-21] MEDS: FUROSEMIDE 10 MG/ML 2ML VIAL IV SCH ×5 (02:17→21:39)
[2019-01-21 03:53] LABS: BASOPHILS % (AUTO) 0.4 % (0.0-5.0); EOSINOPHILS % (AUTO) 3.1 % (0.0-8.0); HEMATOCRIT 30.6 % (36-48); LYMPHOCYTES % (AUTO) 11.5 % (21.0-51.0); MEAN CORPUSCULAR HEMOGLOBIN 31.4 pg (27.0-33.0); MEAN CORPUSCULAR HGB CONC 34.3 g/dL (32.0-36.0); MEAN CORPUSCULAR VOLUME 91.6 fL (79-99); MONOCYTES % (AUTO) 4.2 % (3.0-13.0); NEUTROPHILS % (AUTO) 80.8 % (40.0-77.0); NUCLEATED RED BLOOD CELLS 0.1 % (0.0-0.19); PLATELET COUNT (AUTO) 389 K/uL (130-400); RED BLOOD CELL COUNT(AUTO) 3.34 MIL/uL (4.00-5.50); RED CELL DISTRIBUTION WIDTH 13.5 % (11.0-15.5)
[2019-01-21 04:44] LABS: ALBUMIN 1.9 g/dL (3.5-5.0); BILIRUBIN,TOTAL 0.4 mg/dL (0.2-1.0); CREATININE 1.3 mg/dL (0.5-1.5); MAGNESIUM 3.2 mg/dL (1.80-2.40); PHOSPHORUS 5.2 mg/dL (2.5-4.9); POTASSIUM 3.6 mmol/L (3.5-5.1); TOTAL PROTEIN, SERUM 9.1 g/dL (6.0-8.3)
[2019-01-21] MEDS: ZOSYN 3.375GM+NS 50ML 50 ML IV SCH ×3 (05:14→21:40)
[2019-01-21] MEDS: POTASSIUM CHLORIDE 20MEQ/100ML 100 ML IV PRN (06:02)
[2019-01-21] MEDS: IPRATROPIUM/ALBUTEROL SULFATE 3 ML SOLUTION IH SCH ×3 (06:14→17:07)
[2019-01-21] MEDS: ENOXAPARIN SODIUM 40 MG/0.4 ML SYRINGE SQ SCH (09:00)
[2019-01-21] MEDS ORDERED: CHLORHEXIDINE GLUCONATE 473 ML MOUTHWASH MM PRN (10:00)
--- NOTE | 2019-01-21 12:45 | NUR ---
PT WAS PLACED ON CPAP AND NOTED THAT SHE WAS BREATHING WITHOUT ANY PROBLEMS WITH HER BREATHING.
--- NOTE | 2019-01-21 14:00 | NUR ---
PT HAS BEEN ADVISE WITH AT BEDSIDE THAT SHE IS BEEN PLACED ON CPAP AND THAT SHE HAS BEEN TOLERATING BEING ON CPAP.
[2019-01-21] MEDS: THIAMINE HCL 100 MG/ML 2ML VIAL IVP SCH (15:21)
[2019-01-21] MEDS: FAMOTIDINE/PF 20 MG/2 ML VIAL IV SCH ×2 (15:24→21:40)
[2019-01-21] MEDS: VANCOMYCIN 750MG + NS 250 ML IV SCH ×4 (15:24→21:58)
[2019-01-22] VITALS (24 sets, daily range): BP systolic 76–144; BP diastolic 50–96
[2019-01-22] MEDS: DOXYCYCLINE 100MG+NS 250ML 250 ML IV SCH ×2 (00:31→12:30)
[2019-01-22] MEDS: IPRATROPIUM/ALBUTEROL SULFATE 3 ML SOLUTION IH SCH ×5 (00:38→23:04)
[2019-01-22] MEDS: FUROSEMIDE 10 MG/ML 2ML VIAL IV SCH ×5 (02:01→20:11)
[2019-01-22] MEDS: PROPOFOL 1000 MG/100 ML 100 ML IV PRN (02:16)
[2019-01-22 03:48] LABS: HEMATOCRIT 30.6 % (36-48); MEAN CORPUSCULAR HEMOGLOBIN 30.5 pg (27.0-33.0); MEAN CORPUSCULAR HGB CONC 33.2 g/dL (32.0-36.0); MEAN CORPUSCULAR VOLUME 91.8 fL (79-99); NUCLEATED RED BLOOD CELLS 0.1 % (0.0-0.19); PLATELET COUNT (AUTO) 416 K/uL (130-400); RED BLOOD CELL COUNT(AUTO) 3.33 MIL/uL (4.00-5.50); RED CELL DISTRIBUTION WIDTH 13.5 % (11.0-15.5); WHITE BLOOD COUNT (AUTO) 10.8 K/uL (4.8-10.8)
[2019-01-22 04:16] LABS: CREATININE 1.4 mg/dL (0.5-1.5); MAGNESIUM 2.1 mg/dL (1.80-2.40); PHOSPHORUS 5.1 mg/dL (2.5-4.9); POTASSIUM 3.5 mmol/L (3.5-5.1)
[2019-01-22] MEDS: ZOSYN 3.375GM+NS 50ML 50 ML IV SCH ×3 (04:37→20:12)
[2019-01-22] MEDS: METOCLOPRAMIDE 10 MG/2 ML VIAL IVP SCH ×4 (06:00→15:38)
[2019-01-22] MEDS: VANCOMYCIN 500MG+NS 100ML 100 ML IV SCH ×2 (08:03→20:11)
[2019-01-22] MEDS: FAMOTIDINE/PF 20 MG/2 ML VIAL IV SCH ×2 (08:03→20:11)
[2019-01-22] MEDS: THIAMINE HCL 100 MG/ML 2ML VIAL IVP SCH (08:04)
[2019-01-22] MEDS: POTASSIUM CHLORIDE 20MEQ/100ML 100 ML IV PRN (08:04)
[2019-01-22 10:47] LABS: BILIRUBIN,DIRECT 0.1 mg/dL (0.0-0.3); BILIRUBIN,TOTAL 0.4 mg/dL (0.2-1.0); TOTAL PROTEIN, SERUM 9.5 g/dL (6.0-8.3)
[2019-01-22] MEDS ORDERED: PHARMACY COMMUNICATION MISC SCH (11:45)
[2019-01-22] MEDS ORDERED: COMPOUND PO MISCELLANEOUS 1 EACH MISC MISC PRN (12:00)
[2019-01-22] MEDS: MEROPENEM 1 GM VIAL IVP SCH ×2 (12:30→20:10)
[2019-01-22] MEDS: FLUCONAZOLE 200 MG/NS 100 ML 100 ML IV SCH (12:30)
[2019-01-22 12:38] LABS: ABG BASE EXCESS 4.3 mmol/L (-2.0-3.0); ABG HCO3 28.4 mmol/L (21.0-28.0); ABG OXYGEN SATURATION 99.4 % (95.0-99.0); ABG PCO2 41 mmHg (32-45)
--- NOTE | 2019-01-22 12:55 | NUR ---
DR. ORELLANA AT BEDSIDE IN TO SEE PT. PLAN OF CARE DISCUSSED. PT OFF SEDATION, AWAKE AND FOLLOWING COMMANDS. NEW ORDERS RECEIVED AND NOTED. PT PLACED ON CPAP 5/5 40% ORDERED. PT INSTRUCTED ON WEANING PROCESS, NODS UNDERSTANDING.
[2019-01-22] MEDS: ACETAMINOPHEN ELIXIR 650 MG/20.3 ML UDCUP NG PRN (13:00)
[2019-01-22] MEDS: VANCOMYCIN 2 GM, SODIUM CHLORIDE 0.9% 80 ML NG SCH ×4 (13:01→15:39)
--- NOTE | 2019-01-22 13:25 | NUR ---
RD Follow up Note Pt with E. Coli, UTI. Pt with tube feeding diet order in place (Pivot 1.5@35mls/hr). Pt tube feeding held pending weaning trials as per RN. Pt LBM 01/22/19. Pt monitored labs: BUN 31, GFR 41, Ca 8.3, Mg 5.1, Alb 1.9. Noted Propofol 6mls/hr. RD to continue to monitor. Please notify RD as additional nutrition concerns arise. Thank you. Addendum: 01/22/19 at [address] Amended: Links added.
--- NOTE | 2019-01-22 13:33 | NUR ---
EXTUBATION PT EXTUBATED ORDERED. PLACED ON AFM 40 %. TOLERATING WELL. NO RESP DISTRESS NOTED.
[2019-01-22] MEDS: ENOXAPARIN SODIUM 40 MG/0.4 ML SYRINGE SQ SCH (15:45)
[2019-01-22] MEDS: BACITRACIN 28.4 GM OINT TP SCH (21:00)
[2019-01-23] VITALS (15 sets, daily range): BP systolic 117–154; BP diastolic 70–84
[2019-01-23] MEDS: DEXTROSE 50%-WATER 50 ML DISP.SYRIN IV PRN (00:05)
[2019-01-23] MEDS: ZOSYN 3.375GM+NS 50ML 50 ML IV SCH ×3 (00:30→21:13)
[2019-01-23] MEDS: DOXYCYCLINE 100MG+NS 250ML 250 ML IV SCH ×2 (00:34→12:14)
[2019-01-23] MEDS: FUROSEMIDE 10 MG/ML 2ML VIAL IV SCH ×4 (01:33→21:13)
[2019-01-23 03:42] LABS: BASOPHILS % (AUTO) 1.4 % (0.0-5.0); EOSINOPHILS % (AUTO) 3.5 % (0.0-8.0); HEMATOCRIT 33.3 % (36-48); LYMPHOCYTES % (AUTO) 9.2 % (21.0-51.0); MEAN CORPUSCULAR HEMOGLOBIN 30.9 pg (27.0-33.0); MEAN CORPUSCULAR HGB CONC 33.3 g/dL (32.0-36.0); MEAN CORPUSCULAR VOLUME 93.1 fL (79-99); MONOCYTES % (AUTO) 7.2 % (3.0-13.0); NEUTROPHILS % (AUTO) 78.7 % (40.0-77.0); NUCLEATED RED BLOOD CELLS 0.1 % (0.0-0.19); PLATELET COUNT (AUTO) 456 K/uL (130-400); RED BLOOD CELL COUNT(AUTO) 3.57 MIL/uL (4.00-5.50); RED CELL DISTRIBUTION WIDTH 13.4 % (11.0-15.5); WHITE BLOOD COUNT (AUTO) 9.5 K/uL (4.8-10.8)
[2019-01-23 03:51] LABS: CREATININE 1.4 mg/dL (0.5-1.5); MAGNESIUM 2.2 mg/dL (1.80-2.40); PHOSPHORUS 5.1 mg/dL (2.5-4.9); POTASSIUM 3.5 mmol/L (3.5-5.1)
[2019-01-23] MEDS: POTASSIUM CHLORIDE 20MEQ/100ML 100 ML IV PRN (04:29)
[2019-01-23] MEDS: MEROPENEM 1 GM VIAL IVP SCH ×3 (04:29→21:13)
[2019-01-23] MEDS: VANCOMYCIN 2 GM, SODIUM CHLORIDE 0.9% 80 ML NG SCH ×6 (06:00→12:15)
[2019-01-23] MEDS: METOCLOPRAMIDE 10 MG/2 ML VIAL IVP SCH ×2 (06:00)
[2019-01-23] MEDS: IPRATROPIUM/ALBUTEROL SULFATE 3 ML SOLUTION IH SCH ×4 (06:28→23:02)
[2019-01-23] MEDS: BACITRACIN 28.4 GM OINT TP SCH ×3 (08:10→21:00)
[2019-01-23] MEDS: THIAMINE HCL 100 MG/ML 2ML VIAL IVP SCH (08:14)
[2019-01-23] MEDS: FAMOTIDINE/PF 20 MG/2 ML VIAL IV SCH ×2 (08:15→21:13)
[2019-01-23] MEDS: VANCOMYCIN 500MG+NS 100ML 100 ML IV SCH ×2 (08:15→21:14)
--- NOTE | 2019-01-23 09:30 | NUR ---
DYSPHAGIA EVAL COMPLETED. -S/S OF ASPIRATION. RECOMMEND MECHANICAL SOFT/GROUND, THIN LIQUIDS; PILLS WHOLE WITH LIQUIDS. RECOMMENDATIONS: 1.SKILLED SPEECH THERAPY 2-3XWEEK FOR 2 WEEKS. LTG1: Pt WILL TOLERATE LEAST RESTRICTIVE DIET WITH NO OVERT S/S OF ASPIRATION. STG1: Pt WILL TOLERATE MECHANICAL SOFT/GROUND, THIN LIQUIDS WITH NO OVERT S/S OF ASPIRATION. STG2: Pt WILL TOLERATE TRIALS OF ADVANCED TEXTURES OF MECHANICAL SOFT/CHOPPED, REGULAR WITH NO OVERT S/S OF ASPIRATION OR VOICED DISCOMFORT. STG3: SKILLED EDUCATION Pt/FAMILY/STAFF. Addendum: 01/23/19 at 1239 by ALEENA SAMANO, [facility] Amended: Links added.
[2019-01-23] MEDS ORDERED: METOCLOPRAMIDE 10 MG/2 ML VIAL IVP PRN (11:00)
[2019-01-23 12:09] LABS: INR 1.2 (0.85-1.15); PROTHROMBIN TIME 12.5 SEC (9.6-11.6)
[2019-01-23] MEDS: FLUCONAZOLE 200 MG/NS 100 ML 100 ML IV SCH (12:14)
[2019-01-23] MEDS: ENOXAPARIN SODIUM 40 MG/0.4 ML SYRINGE SQ SCH (14:09)
[2019-01-23] MEDS: DOXYCYCLINE HYCLATE 100 MG TABLET PO SCH (21:13)
[2019-01-24] VITALS (8 sets, daily range): BP systolic 129–161; BP diastolic 67–83
[2019-01-24] MEDS: FUROSEMIDE 10 MG/ML 2ML VIAL IV SCH ×4 (04:12→21:31)
[2019-01-24] MEDS: MEROPENEM 1 GM VIAL IVP SCH ×3 (04:12→21:30)
[2019-01-24] MEDS: ZOSYN 3.375GM+NS 50ML 50 ML IV SCH ×3 (04:13→21:30)
[2019-01-24 05:33] LABS: BASOPHILS % (AUTO) 0.5 % (0.0-5.0); EOSINOPHILS % (AUTO) 2.3 % (0.0-8.0); HEMATOCRIT 35.9 % (36-48); LYMPHOCYTES % (AUTO) 18.5 % (21.0-51.0); MEAN CORPUSCULAR HEMOGLOBIN 30.8 pg (27.0-33.0); MEAN CORPUSCULAR HGB CONC 33.5 g/dL (32.0-36.0); MONOCYTES % (AUTO) 6.6 % (3.0-13.0); NEUTROPHILS % (AUTO) 72.1 % (40.0-77.0); PLATELET COUNT (AUTO) 513 K/uL (130-400); RED CELL DISTRIBUTION WIDTH 13.7 % (11.0-15.5); WHITE BLOOD COUNT (AUTO) 8.5 K/uL (4.8-10.8)
[2019-01-24 05:37] LABS: CREATININE 1.3 mg/dL (0.5-1.5); POTASSIUM 3.5 mmol/L (3.5-5.1)
[2019-01-24] MEDS: POTASSIUM CHLORIDE 20MEQ/100ML 100 ML IV PRN (05:59)
[2019-01-24] MEDS: LIDOCAINE HCL-MPF 1% 2ML VIAL IV PRN ×2 (05:59→06:35)
[2019-01-24] MEDS: IPRATROPIUM/ALBUTEROL SULFATE 3 ML SOLUTION IH SCH ×4 (06:14→23:31)
[2019-01-24] MEDS: FAMOTIDINE/PF 20 MG/2 ML VIAL IV SCH ×2 (08:22→21:31)
[2019-01-24] MEDS: THIAMINE HCL 100 MG/ML 2ML VIAL IVP SCH (08:22)
[2019-01-24] MEDS: VANCOMYCIN 500MG+NS 100ML 100 ML IV SCH ×2 (08:23→21:30)
[2019-01-24] MEDS: DOXYCYCLINE HYCLATE 100 MG TABLET PO SCH ×2 (08:24→21:31)
[2019-01-24] MEDS: FLUCONAZOLE 100 MG TAB PO SCH (08:24)
[2019-01-24] MEDS: ENOXAPARIN SODIUM 40 MG/0.4 ML SYRINGE SQ SCH (08:24)
[2019-01-24] MEDS: BACITRACIN 28.4 GM OINT TP SCH ×3 (08:35→21:00)
--- NOTE | 2019-01-24 10:00 | NUR ---
PT WAS SAT UP TO CHAIR PER PHYSICAL THERAPIST. FAMILY AT BEDSIDE.
--- NOTE | 2019-01-24 12:17 | NUR ---
FOLLOW UP COMPLETED. Pt WITH NO OVERT S/S OF ASPIRATION WITH CURRENT DIET. Pt COMPLAINS OF CONTINUED SORENESS IN ORAL CAVITY. Pt REQUESTING MEALS THAT ARE SOFT. Pt CURRENTLY ON MECHANICAL SOFT/GROUND, THIN LIQUIDS. RECOMMEND CONTINUED DIET. STEAM DISTRIBUTION SUPERVISOR COORDINATED CARE WITH NURSE MG RODRIGUEZ. Addendum: 01/24/19 at [address] Amended: Links added.
[2019-01-24] MEDS ORDERED: PHARMACY COMMUNICATION MISC SCH (13:15)
[2019-01-24] MEDS: MAG HYDROX/AL HYDROX/SIMETH 30 ML, LIDOCAINE HCL 2% VISCOUS 30 ML, DIPHENHYDRAMINE HCL ... PO SCH ×6 (13:15→21:32)
[2019-01-24] MEDS ORDERED: LIDOCAINE HCL 2% VISCOUS 15 ML UDCUP PO PRN (13:30)
[2019-01-24] MEDS: GUAIFENESIN 600 MG TABLET.ER PO SCH (21:31)
[2019-01-24] MEDS: ACYCLOVIR 800 MG TABLET PO SCH ×2 (21:31→21:34)
[2019-01-25] MEDS: ACETAMINOPHEN ELIXIR 650 MG/20.3 ML UDCUP NG PRN (01:44)
[2019-01-25] MEDS: MAG HYDROX/AL HYDROX/SIMETH 30 ML, LIDOCAINE HCL 2% VISCOUS 30 ML, DIPHENHYDRAMINE HCL ... PO SCH ×12 (01:45→18:23)
[2019-01-25 04:03] VITALS: BP 109/68
[2019-01-25] MEDS: ZOSYN 3.375GM+NS 50ML 50 ML IV SCH ×3 (06:04→20:11)
[2019-01-25] MEDS: FUROSEMIDE 10 MG/ML 2ML VIAL IV SCH ×4 (06:04→20:11)
[2019-01-25] MEDS: MEROPENEM 1 GM VIAL IVP SCH ×3 (06:05→18:23)
[2019-01-25] MEDS: ACYCLOVIR 800 MG TABLET PO SCH ×5 (06:05→22:25)
[2019-01-25] MEDS: IPRATROPIUM/ALBUTEROL SULFATE 3 ML SOLUTION IH SCH ×4 (06:33→23:09)
[2019-01-25 07:57] VITALS: BP 133/64
[2019-01-25] MEDS: BACITRACIN 28.4 GM OINT TP SCH ×3 (09:00→20:13)
[2019-01-25] MEDS: DOXYCYCLINE HYCLATE 100 MG TABLET PO SCH ×2 (09:34→20:12)
[2019-01-25] MEDS: GUAIFENESIN 600 MG TABLET.ER PO SCH ×2 (09:34→20:12)
[2019-01-25] MEDS: FLUCONAZOLE 100 MG TAB PO SCH (09:34)
[2019-01-25] MEDS: FAMOTIDINE/PF 20 MG/2 ML VIAL IV SCH ×2 (09:34→20:11)
[2019-01-25] MEDS: THIAMINE HCL 100 MG/ML 2ML VIAL IVP SCH (09:34)
[2019-01-25] MEDS: ENOXAPARIN SODIUM 40 MG/0.4 ML SYRINGE SQ SCH (09:42)
[2019-01-25] MEDS: VANCOMYCIN 500MG+NS 100ML 100 ML IV SCH ×2 (11:08→20:12)
[2019-01-25] MEDS: ACETAMINOPHEN 325 MG TAB PO PRN (11:37)
[2019-01-25 11:41] VITALS: BP 141/81
[2019-01-25] MEDS ORDERED: METHYLPREDNISOLONE SOD SUCC 125MG/2ML VIAL IVP SCH (12:00)
[2019-01-25 15:28] VITALS: BP 137/73
[2019-01-25 19:00] VITALS: BP 136/64
[2019-01-25 23:00] VITALS: BP 130/69
[2019-01-26] MEDS: MAG HYDROX/AL HYDROX/SIMETH 30 ML, LIDOCAINE HCL 2% VISCOUS 30 ML, DIPHENHYDRAMINE HCL ... PO SCH ×12 (01:41→19:35)
[2019-01-26] MEDS: FUROSEMIDE 10 MG/ML 2ML VIAL IV SCH ×4 (02:05→20:28)
[2019-01-26 03:00] VITALS: BP 127/63
[2019-01-26 04:01] LABS: BASOPHILS % (AUTO) 0.8 % (0.0-5.0); HEMATOCRIT 30.1 % (36-48); LYMPHOCYTES % (AUTO) 19.1 % (21.0-51.0); MEAN CORPUSCULAR HEMOGLOBIN 30.5 pg (27.0-33.0); MEAN CORPUSCULAR VOLUME 89.6 fL (79-99); MONOCYTES % (AUTO) 6.2 % (3.0-13.0); NEUTROPHILS % (AUTO) 73.9 % (40.0-77.0); PLATELET COUNT (AUTO) 512 K/uL (130-400); RED BLOOD CELL COUNT(AUTO) 3.36 MIL/uL (4.00-5.50); RED CELL DISTRIBUTION WIDTH 13.3 % (11.0-15.5); WHITE BLOOD COUNT (AUTO) 6.6 K/uL (4.8-10.8)
[2019-01-26] MEDS: ZOSYN 3.375GM+NS 50ML 50 ML IV SCH ×2 (04:20→12:32)
[2019-01-26] MEDS: MEROPENEM 1 GM VIAL IVP SCH ×3 (04:20→20:28)
[2019-01-26 04:42] LABS: ALBUMIN 1.9 g/dL (3.5-5.0); BILIRUBIN,TOTAL 0.5 mg/dL (0.2-1.0); CREATININE 1.4 mg/dL (0.5-1.5); POTASSIUM 3.2 mmol/L (3.5-5.1); TOTAL PROTEIN, SERUM 9.6 g/dL (6.0-8.3)
[2019-01-26] MEDS: IPRATROPIUM/ALBUTEROL SULFATE 3 ML SOLUTION IH SCH ×4 (04:57→23:29)
[2019-01-26] MEDS: ACYCLOVIR 800 MG TABLET PO SCH ×2 (06:19→12:30)
[2019-01-26 07:47] VITALS: BP 114/60
[2019-01-26] MEDS: GUAIFENESIN 600 MG TABLET.ER PO SCH ×2 (08:49→20:29)
[2019-01-26] MEDS: THIAMINE HCL 100 MG/ML 2ML VIAL IVP SCH (08:49)
[2019-01-26] MEDS: FLUCONAZOLE 100 MG TAB PO SCH (08:49)
[2019-01-26] MEDS: FAMOTIDINE/PF 20 MG/2 ML VIAL IV SCH ×2 (08:49→20:29)
[2019-01-26] MEDS: DOXYCYCLINE HYCLATE 100 MG TABLET PO SCH (08:49)
[2019-01-26] MEDS: ENOXAPARIN SODIUM 40 MG/0.4 ML SYRINGE SQ SCH (08:50)
[2019-01-26] MEDS: POTASSIUM CHLORIDE 20 MEQ ERTAB PO SCH ×3 (09:07→20:31)
[2019-01-26] MEDS: VANCOMYCIN 500MG+NS 100ML 100 ML IV SCH ×2 (09:08→20:28)
--- NOTE | 2019-01-26 10:20 | NUR ---
DR. ARANGO IN ROOM SPEAKING WITH PT. FAMILY MEMBERS AT BEDSIDE. QUESTIONS ANSWERED BY DR. ARANGO.
[2019-01-26 11:25] VITALS: BP 105/66
[2019-01-26 11:28] LABS: MAGNESIUM 2.3 mg/dL (1.80-2.40); PHOSPHORUS 4.7 mg/dL (2.5-4.9)
--- NOTE | 2019-01-26 11:56 | NUR ---
DC PLAN SPOKE TO CIERRA FIBERGLASS MACHINE OPERATOR SAID EXPLAINED THAT PATIENT IS SELF PAY AND NO KUSHAL BEDS AVAILABLE. VERBALIZED UNDERSTANDING. LET DR. PAYNE WELL. Addendum: 01/26/19 at 1158 by TALHA DUMONT RN CM Amended: Links added.
[2019-01-26] MEDS: GUAIFENESIN-CODEINE 5 ML SYRUP PO PRN (12:30)
[2019-01-26] MEDS: SODIUM CHLORIDE 0.9% 1000ML 1,000 ML IV SCH (12:31)
[2019-01-26] MEDS: BACITRACIN 28.4 GM OINT TP SCH ×2 (14:00→20:31)
--- NOTE | 2019-01-26 14:55 | NUR ---
F/C REMOVED ORDERED. PT. TOLERATED WELL, W/O C/O. CALL LIGHT WITHIN REACH. FAMILY MEMBERS AT BEDSIDE.
[2019-01-26 16:47] VITALS: BP 107/52
[2019-01-26 19:00] VITALS: BP 156/75
--- NOTE | 2019-01-26 19:45 | NUR ---
ASSESSMENT PATIENT IS RESTING IN BED. FAMILY AT BEDSIDE. ALERT AND ORIENTED X4. NO COMPLAINTS OF PAIN. NO SHORTNESS OF BREATH. NO SIGNS OF DISTRESS. PATIENTS CALL LIGHT AND BEDSIDE TABLE WITHIN REACH. NO QUESTIONS, CONCERNS, OR NEEDS AT THIS TIME. REINFORCED FOR CALL LIGHT USE FOR ANY NEEDS.
[2019-01-26 23:00] VITALS: BP 161/75
[2019-01-27] MEDS: MAG HYDROX/AL HYDROX/SIMETH 30 ML, LIDOCAINE HCL 2% VISCOUS 30 ML, DIPHENHYDRAMINE HCL ... PO SCH ×12 (02:14→19:35)
[2019-01-27 03:00] VITALS: BP 152/91
[2019-01-27 04:11] LABS: CREATININE 1.5 mg/dL (0.5-1.5)
[2019-01-27 04:22] LABS: BILIRUBIN,TOTAL 0.5 mg/dL (0.2-1.0); TOTAL PROTEIN, SERUM 9.4 g/dL (6.0-8.3)
[2019-01-27] MEDS: FUROSEMIDE 10 MG/ML 2ML VIAL IV SCH ×3 (06:29→13:33)
[2019-01-27] MEDS: IPRATROPIUM/ALBUTEROL SULFATE 3 ML SOLUTION IH SCH ×4 (06:29→23:33)
[2019-01-27] MEDS: MEROPENEM 1 GM VIAL IVP SCH (06:30)
[2019-01-27] MEDS: POTASSIUM CHLORIDE 20MEQ/100ML 100 ML IV PRN ×2 (06:37→11:58)
[2019-01-27 07:00] VITALS: BP 127/70
[2019-01-27] MEDS: SODIUM CHLORIDE 0.9% 1000ML 1,000 ML IV SCH ×2 (07:00→16:21)
--- NOTE | 2019-01-27 07:35 | NUR ---
NOTIFIED DR. Rossana ARANGO, AT NURSE'S STATION, RE:ELEVATED TEMP. ORDER FOR BLOOD CX RECEIVED.
[2019-01-27] MEDS: FLUCONAZOLE 100 MG TAB PO SCH (08:10)
[2019-01-27] MEDS: VANCOMYCIN 500MG+NS 100ML 100 ML IV SCH (08:10)
[2019-01-27] MEDS: FAMOTIDINE/PF 20 MG/2 ML VIAL IV SCH ×2 (08:10→20:58)
[2019-01-27] MEDS: THIAMINE HCL 100 MG/ML 2ML VIAL IVP SCH (08:10)
[2019-01-27] MEDS: GUAIFENESIN 600 MG TABLET.ER PO SCH ×2 (08:10→20:58)
[2019-01-27] MEDS: ACETAMINOPHEN 325 MG TAB PO PRN (08:11)
[2019-01-27] MEDS: ENOXAPARIN SODIUM 40 MG/0.4 ML SYRINGE SQ SCH (08:11)
[2019-01-27] MEDS: BACITRACIN 28.4 GM OINT TP SCH ×3 (08:33→20:58)
[2019-01-27] MEDS ORDERED: SODIUM CHLORIDE 3% FOR INHALATION 4 ML/AMP VIAL.NEB IH ONE ×3 (10:38→23:29)
[2019-01-27 11:00] VITALS: BP 120/81
[2019-01-27] MEDS: LIDOCAINE HCL-MPF 1% 2ML VIAL IV PRN (11:58)
--- NOTE | 2019-01-27 12:30 | NUR ---
SPOKE WITH DR. HERNANDEZ AT NURSE'S STATION RE:ELEVATED TEMP. IN AM AND BLOOD CX'S DONE, VERBALIZED UNDERSTANDING. STATES ABX DISCONTINUED.
--- NOTE | 2019-01-27 12:53 | NUR ---
RD FOLLOW UP DIET: REGULAR/ MECHANICAL SOFT/CHOPPED, HEART HEALTHY. NOTHING HOT, SALTY, ACIDIC, OR SPICY. ENSURE IS OKAY. LABS REVIEWED. MEDS REVIEWED. NO COMPLAINTS OF ABDOMINAL PAIN, NAUSEA AND VOMITING WITH MEALS. PO INTAKE 0% AND PT CONTINUES WITH POOR APPETITE. S/P EXTUBATED ON 01/24. PT STATED SHE WILL NOT DRINK ORAL SUPPLEMENT BECAUSE IT GIVES HER DIARRHEA. PT NOT ABLE TO TOLERATE MEALS UNLESS FOOD IS JELLO- SOFT/BLAND DUE TO MOUTH SORES. RD RECOMMENDS CONTINUE CURRENT DIET CONTINUE TO OFFER SOFT/BLAND FOODS ENCOURAGE ADEQUATE PO INTAKE AT ALL MEALS OFFER 30MLS PROMOD BID RD WILL CONTINUE TO MONITOR AND FOLLOW UP NEEDED, THANK YOU. Addendum: 01/27/19 at [address] Amended: Links added.
[2019-01-27] MEDS: METHYLPREDNISOLONE SOD SUCC 40MG/ML 1ML IVP SCH (13:33)
[2019-01-27 15:00] VITALS: BP 124/75
[2019-01-27 19:00] VITALS: BP 118/64
[2019-01-27 23:00] VITALS: BP 141/76
[2019-01-28] MEDS: MAG HYDROX/AL HYDROX/SIMETH 30 ML, LIDOCAINE HCL 2% VISCOUS 30 ML, DIPHENHYDRAMINE HCL ... PO SCH ×12 (01:14→18:58)
[2019-01-28 03:00] VITALS: BP 131/67
[2019-01-28] MEDS: SODIUM CHLORIDE 0.9% 1000ML 1,000 ML IV SCH ×3 (03:00→23:00)
[2019-01-28 04:45] LABS: ALBUMIN 1.8 g/dL (3.5-5.0); BILIRUBIN,TOTAL 0.4 mg/dL (0.2-1.0); CREATININE 1.3 mg/dL (0.5-1.5); POTASSIUM 3.5 mmol/L (3.5-5.1); TOTAL PROTEIN, SERUM 8.7 g/dL (6.0-8.3)
[2019-01-28] MEDS: POTASSIUM CHLORIDE 20MEQ/100ML 100 ML IV PRN (06:17)
[2019-01-28] MEDS: IPRATROPIUM/ALBUTEROL SULFATE 3 ML SOLUTION IH SCH ×3 (06:28→18:29)
[2019-01-28 07:00] VITALS: BP 111/65
[2019-01-28] MEDS: FAMOTIDINE/PF 20 MG/2 ML VIAL IV SCH ×2 (08:44→21:56)
[2019-01-28] MEDS: THIAMINE HCL 100 MG/ML 2ML VIAL IVP SCH (08:44)
[2019-01-28] MEDS: ENOXAPARIN SODIUM 40 MG/0.4 ML SYRINGE SQ SCH (08:45)
[2019-01-28] MEDS: GUAIFENESIN 600 MG TABLET.ER PO SCH ×2 (08:45→21:57)
[2019-01-28] MEDS: FUROSEMIDE 10 MG/ML 2ML VIAL IV SCH (08:45)
[2019-01-28] MEDS: BACITRACIN 28.4 GM OINT TP SCH ×3 (08:54→21:00)
--- NOTE | 2019-01-28 09:08 | NUR ---
DR. HERNANDEZ IN ROOM SPEAKING WITH PT.
[2019-01-28 11:00] VITALS: BP 123/77
[2019-01-28] MEDS: METHYLPREDNISOLONE SOD SUCC 40MG/ML 1ML IVP SCH (12:22)
[2019-01-28] MEDS: GUAIFENESIN-CODEINE 5 ML SYRUP PO PRN (12:22)
[2019-01-28 15:00] VITALS: BP 122/73
[2019-01-28 19:39] VITALS: BP 133/86
[2019-01-28 23:51] VITALS: BP 122/72
[2019-01-29] MEDS: IPRATROPIUM/ALBUTEROL SULFATE 3 ML SOLUTION IH SCH ×5 (00:10→23:20)
[2019-01-29 04:06] VITALS: BP 143/68
[2019-01-29] MEDS: MAG HYDROX/AL HYDROX/SIMETH 30 ML, LIDOCAINE HCL 2% VISCOUS 30 ML, DIPHENHYDRAMINE HCL ... PO SCH ×12 (04:08→20:44)
[2019-01-29 08:42] VITALS: BP 113/64
[2019-01-29] MEDS: BACITRACIN 28.4 GM OINT TP SCH ×3 (09:00→21:00)
[2019-01-29] MEDS: SODIUM CHLORIDE 0.9% 1000ML 1,000 ML IV SCH (10:05)
[2019-01-29] MEDS: GUAIFENESIN 600 MG TABLET.ER PO SCH ×2 (10:06→20:44)
[2019-01-29] MEDS: THIAMINE HCL 100 MG/ML 2ML VIAL IVP SCH (10:06)
[2019-01-29] MEDS: FAMOTIDINE/PF 20 MG/2 ML VIAL IV SCH ×2 (10:06→20:44)
[2019-01-29] MEDS: FUROSEMIDE 10 MG/ML 2ML VIAL IV SCH (10:07)
[2019-01-29] MEDS: ENOXAPARIN SODIUM 40 MG/0.4 ML SYRINGE SQ SCH (10:07)
--- NOTE | 2019-01-29 11:21 | NUR ---
FOLLOW UP. Pt TOLERATING CURRENT DIET. Pt NOT ABLE TO PLACE DENTURES AT THIS TIME. IMPROVED ORAL SORES AND ABLE TO MASTICATE WITHOUT THE DENTURES. Pt TOLERATING MECHANICAL SOFT/CHOPPED, THIN LIQUID DIET. Addendum: 01/29/19 at 1123 by ALEENA SAMANO, [facility] Amended: Links added.
[2019-01-29 12:00] VITALS: BP 126/83
[2019-01-29] MEDS: METHYLPREDNISOLONE SOD SUCC 40MG/ML 1ML IVP SCH (12:44)
--- NOTE | 2019-01-29 15:02 | NUR ---
[facility] Tx to BID effective this pm. Patient was transferred from bed to chair and was able to ambulate using SW x 10 ft moderate to minimal assistance for balance and safety.Demonstrates decrease endurance. Notified LUISA Baxter that patient is sitting up in chair at this time. Addendum: 01/29/19 at 1507 by JOSE BELLE, PT PT Amended: Links added.
[2019-01-29 16:00] VITALS: BP 116/76
[2019-01-29 20:00] VITALS: BP 131/81
[2019-01-29 23:45] VITALS: BP 132/84
[2019-01-30] MEDS: MAG HYDROX/AL HYDROX/SIMETH 30 ML, LIDOCAINE HCL 2% VISCOUS 30 ML, DIPHENHYDRAMINE HCL ... PO SCH ×12 (02:22→21:40)
[2019-01-30 03:58] VITALS: BP 130/84
[2019-01-30 04:05] LABS: BASOPHILS % (AUTO) 0.4 % (0.0-5.0); EOSINOPHILS % (AUTO) 0.5 % (0.0-8.0); HEMATOCRIT 30.4 % (36-48); LYMPHOCYTES % (AUTO) 18.9 % (21.0-51.0); MEAN CORPUSCULAR HEMOGLOBIN 30.4 pg (27.0-33.0); MEAN CORPUSCULAR HGB CONC 33.7 g/dL (32.0-36.0); MEAN CORPUSCULAR VOLUME 90.2 fL (79-99); MONOCYTES % (AUTO) 8.9 % (3.0-13.0); NEUTROPHILS % (AUTO) 71.3 % (40.0-77.0); PLATELET COUNT (AUTO) 563 K/uL (130-400); RED BLOOD CELL COUNT(AUTO) 3.37 MIL/uL (4.00-5.50); RED CELL DISTRIBUTION WIDTH 13.7 % (11.0-15.5); WHITE BLOOD COUNT (AUTO) 7.6 K/uL (4.8-10.8)
[2019-01-30 04:25] LABS: CREATININE 1.2 mg/dL (0.5-1.5); POTASSIUM 3.7 mmol/L (3.5-5.1)
[2019-01-30] MEDS: IPRATROPIUM/ALBUTEROL SULFATE 3 ML SOLUTION IH SCH ×4 (06:21→23:16)
[2019-01-30 07:32] VITALS: BP 138/89
[2019-01-30] MEDS: GUAIFENESIN 600 MG TABLET.ER PO SCH ×2 (09:44→21:39)
[2019-01-30] MEDS: THIAMINE HCL 100 MG/ML 2ML VIAL IVP SCH (09:44)
[2019-01-30] MEDS: ENOXAPARIN SODIUM 40 MG/0.4 ML SYRINGE SQ SCH (09:44)
[2019-01-30] MEDS: FUROSEMIDE 10 MG/ML 2ML VIAL IV SCH (09:44)
[2019-01-30] MEDS: FAMOTIDINE/PF 20 MG/2 ML VIAL IV SCH ×2 (09:44→21:39)
[2019-01-30 11:11] VITALS: BP 116/77
[2019-01-30] MEDS: BACITRACIN 28.4 GM OINT TP SCH ×3 (12:16→21:00)
[2019-01-30] MEDS: METHYLPREDNISOLONE SOD SUCC 40MG/ML 1ML IVP SCH (12:16)
--- NOTE | 2019-01-30 15:10 | NUR ---
DC PLAN VISITED WITH PATIENT REGARDING WHEEL CHAIR. SAID THEY DONT NEED. BOUGHT WALKER WITH WHEELS FOR PATIENT. AWARE THAT DISCHARGE WILL BE SOON. OKAY WITH GOING HOME. Addendum: 01/30/19 at 1515 by TALHA DUMONT RN CM Amended: Links added.
[2019-01-30 15:30] VITALS: BP 129/90
[2019-01-30] MEDS: SODIUM CHLORIDE 0.9% 1000ML 1,000 ML IV SCH (15:44)
[2019-01-30 19:38] VITALS: BP 120/88
[2019-01-31 00:14] VITALS: BP 140/88
[2019-01-31 04:21] VITALS: BP 120/85
[2019-01-31] MEDS: IPRATROPIUM/ALBUTEROL SULFATE 3 ML SOLUTION IH SCH (05:13)
[2019-01-31] MEDS: MAG HYDROX/AL HYDROX/SIMETH 30 ML, LIDOCAINE HCL 2% VISCOUS 30 ML, DIPHENHYDRAMINE HCL ... PO SCH ×3 (06:00)
--- NOTE | 2019-01-31 07:45 | NUR ---
ASSESSMENT ENCOUNTERED PT A&OX3, CALM COOPERATIVE AND DOES NOT APPEAR TO BE IN ANY DISTRESS NOR ANY NEURO DEFICITS PRESENT, PT DENIES PAIN, SOB, NAUSEA. PT IS ABLE TO TOLERATE FOODS FLUIDS AND MEDICATION WITH NO THROAT CLEARING OR COUGH. PT IS ABLE TO AMBULATE TO CHAIR, GAIT SLOW AND UNSTEADY WITH WALKER, GAIT BELT AND 1-2 PERSON ASSIST. CALL LIGHT WITHIN REACH, FAMILY AT BEDSIDE
[2019-01-31 07:46] VITALS: BP 125/71
[2019-01-31] MEDS ORDERED: PRED20TA3 PO (10:34)
--- NOTE | 2019-01-31 12:00 | NUR ---
DISCHARGE INSTRUCTIONS GIVEN, PIV REMOVED AND INTACT, PT ABLE TO AMBULATE TO WHEELCHAIR WITH 1-2 PERSON ASSIST DISCHARGED HOME TO FAMILY VEHICLE VIA WHEELCHAIR.
== END 2019-01-31 11:15 | disposition home or self-care (01) | DRG 870 ==
LOC: EDH 18:30 → EDHIP 18:31 → 2DH 21:47 → 2BH 01-13 13:31 → 2CH 01-14 17:32 → 2AH 01-24 16:50
PROVIDERS: ADMIT Internal Medicine; ATTEND Internal Medicine
PROC: 5A1955Z Respiratory Ventilation, Greater than 96 Consecutive Hours (ICD-10-PCS; principal; 2019-01-13)
PROC: 3E0234Z Introduction of Serum, Toxoid and Vaccine into Muscle, Percutaneous Approach (ICD-10-PCS; 2019-01-13)
PROC: 5A09357 Assistance with Respiratory Ventilation, Less than 24 Consecutive Hours, Continuous Positive Airway Pressure (ICD-10-PCS; 2019-01-13)
PROC: 0BH17EZ Insertion of Endotracheal Airway into Trachea, Via Natural or Artificial Opening (ICD-10-PCS; 2019-01-13)
PROC: 02HV33Z Insertion of Infusion Device into Superior Vena Cava, Percutaneous Approach (ICD-10-PCS; 2019-01-13)
PROC: B548ZZA Ultrasonography of Superior Vena Cava, Guidance (ICD-10-PCS; 2019-01-13)
DX: A41.50 Gram-negative sepsis, unspecified (principal); R65.21 Severe sepsis with septic shock; E43 Unspecified severe protein-calorie malnutrition; J96.01 Acute respiratory failure with hypoxia; N17.0 Acute kidney failure with tubular necrosis; I63.9 Cerebral infarction, unspecified; J13 Pneumonia due to Streptococcus pneumoniae; E87.2 Acidosis; G72.81 Critical illness myopathy; G93.40 Encephalopathy, unspecified; N30.00 Acute cystitis without hematuria; E87.6 Hypokalemia; E86.0 Dehydration; E66.01 Morbid (severe) obesity due to excess calories; B00.9 Herpesviral infection, unspecified; B96.20 Unspecified Escherichia coli [E. coli] as the cause of diseases classified elsewhere; D64.9 Anemia, unspecified; E11.22 Type 2 diabetes mellitus with diabetic chronic kidney disease; E83.39 Other disorders of phosphorus metabolism; E83.42 Hypomagnesemia; I13.10 Hypertensive heart and chronic kidney disease without heart failure, with stage 1 through stage 4 chronic kidney disease, or unspecified chronic kidney disease; K12.1 Other forms of stomatitis; K12.30 Oral mucositis (ulcerative), unspecified; N18.9 Chronic kidney disease, unspecified; R76.8 Other specified abnormal immunological findings in serum; Z68.35 Body mass index [BMI] 35.0-35.9, adult; Z87.01 Personal history of pneumonia (recurrent); Z90.710 Acquired absence of both cervix and uterus; Z23 Encounter for immunization
CPT/HCPCS: 31500; 36415; 36600; 71045; 71046; 76770; 80048; 80053; 80076; 80202; 81001; 82150; 82550; 82803; 82948; 83036; 83540; 83550; 83605; 83690; 83735; 83874; 83880; 84100; 84132; 84145; 84484; 84550; 85025; 85027; 85610; 85651; 85730; 86038; 86140; 86160; 86200; 86215; 86235; 86255; 86334; 86431; 86850; 86900; 86901; 86922; 87040; 87071; 87077; 87088; 87186; 87205; 87486; 87493; 87581; 87633; 87798; 87804; 90732; 92610; 93005; 93306; 93308; 93970; 94002; 94003; 94640; 94660; 94664; 97039; 99291; A4357; G0378; J0456; J0696; J1450; J1650; J1940; J2185; J2250; J2370; J2405; J2543; J2704; J2765; J2920; J2930; J3010; J3370; J3411; J3475; J3480; J3490; J7030; J7040; J7070

== ENCOUNTER 2019-05-11 18:50 | Inpatient (IN) | payer OTHER ==
[~2019-05-11] VITALS: Ht 154.9 cm; Wt 87.1 kg
[~2019-05-11 18:50] MED LIST changes: +PRED20TA3 PO; +ROCURONIUM BROMIDE 10MG/1ML 5ML VL IV ONE; +SUCCINYLCHOLINE CHLORIDE 20 MG/ML 10 ML VIAL IVP ONE
[2019-05-11] MEDS ORDERED: PROPOFOL 1000 MG/100 ML 100 ML IV ONE (19:19)
[2019-05-11] MEDS ORDERED: ZOSYN 3.375GM+NS 50ML 50 ML IV ONE (19:29)
[2019-05-11] MEDS ORDERED: VANCOMYCIN 1GM+NS 250ML 250 ML IV ONE (19:29)
[2019-05-11] MEDS ORDERED: METHYLPREDNISOLONE SOD SUCC 125MG/2ML VIAL ONE ×2 (19:29→19:59)
[2019-05-11] MEDS ORDERED: ACETAMINOPHEN 120 MG SUPPOSITORY RC ONE (19:30)
[2019-05-11 19:42] LABS: BASOPHILS % (AUTO) 0.4 % (0.0-5.0); EOSINOPHILS % (AUTO) 0.1 % (0.0-8.0); HEMATOCRIT 33.5 % (36-48); MEAN CORPUSCULAR HEMOGLOBIN 28.7 pg (27.0-33.0); MEAN CORPUSCULAR HGB CONC 33.4 g/dL (32.0-36.0); MEAN CORPUSCULAR VOLUME 85.9 fL (79-99); MONOCYTES % (AUTO) 0.6 % (3.0-13.0); NEUTROPHILS % (AUTO) 82.1 % (40.0-77.0); NUCLEATED RED BLOOD CELLS 0.5 % (0.0-0.19); PLATELET COUNT (AUTO) 222 K/uL (130-400); RED CELL DISTRIBUTION WIDTH 18.5 % (11.0-15.5); WHITE BLOOD COUNT (AUTO) 12.4 K/uL (4.8-10.8)
[2019-05-11 19:58] LABS: INR 1.96 (0.85-1.15); PARTIAL THROMBOPLASTIN TIME 51.9 SEC (26.3-35.5); PROTHROMBIN TIME 20.6 SEC (9.6-11.6)
[2019-05-11] MEDS ORDERED: ACETAMINOPHEN 650 MG SUPPOSITORY RC ONE (20:00)
[2019-05-11] MEDS ORDERED: IPRATROPIUM/ALBUTEROL SULFATE 3 ML SOLUTION IH ONE (20:01)
[2019-05-11 20:19] LABS: APPEARANCE,URINE CLEAR (CLEAR); BILIRUBIN,URINE NEGATIVE (NEGATIVE); COLOR,URINE STRAW (YELLOW); GLUCOSE, URINE (UA) NEGATIVE (NEGATIVE); KETONES,URINE NEGATIVE (NEGATIVE); LEUKOCYTE ESTERASE ,URINE NEGATIVE (NEGATIVE); NITRATE,URINE NEGATIVE (NEGATIVE); OCCULT BLOOD,URINE NEGATIVE (NEGATIVE); PH,URINE 5.5 (5.0-8.0); PROTEIN,URINE NEGATIVE (NEGATIVE); UROBILINOGEN,URINE 0.2 mg/dL (0.2-1.0)
[2019-05-11] MEDS ORDERED: SODIUM CHLORIDE 0.9% 1000ML 1,000 ML IV ONE ×2 (20:24→20:44)
[2019-05-11 20:32] LABS: RBC,URINE 0-1 /HPF (0-1); WBC,URINE 0-1 /HPF (0-1)
[2019-05-11 20:33] LABS: BACTERIA,URINE Rare /HPF (None Seen); SQUAMOUS EPITHELIAL CELL,UR None Seen /HPF (0-2)
[2019-05-11 20:34] LABS: ALBUMIN 1.3 g/dL (3.5-5.0); BILIRUBIN,TOTAL 1.3 mg/dL (0.2-1.0); CREATININE 1.5 mg/dL (0.5-1.5); TOTAL PROTEIN, SERUM 7.5 g/dL (6.0-8.3)
[2019-05-11 20:37] LABS: POTASSIUM 2.9 mmol/L (3.5-5.1); TROPONIN I 7.17 ng/mL (0.00-0.06)
[2019-05-11 20:45] LABS: ABG BASE EXCESS -10.1 mmol/L (-2.0-3.0); ABG OXYGEN SATURATION 93.4 % (95.0-99.0); ABG PCO2 31 mmHg (32-45)
[2019-05-11] MEDS ORDERED: MIDAZOLAM HCL 1 MG/ML 2ML VIAL ONE (20:52)
[2019-05-11] MEDS ORDERED: FENTANYL CITRATE PF 50 MCG/1 ML 2ML VIAL ONE (20:52)
[2019-05-11] MEDS ORDERED: POTASSIUM CHLORIDE 20MEQ/100ML 100 ML IV ONE (20:54)
[2019-05-11] MEDS ORDERED: MIDAZOLAM 50MG-0.9% NS 50ML 50 ML BAG IV SCH (21:15)
[2019-05-11] MEDS ORDERED: FENTANYL CITRATE PF 0.05 MG/ML 1,000 MCG in SODIUM CHLORIDE 0.9% 100 ML IVPB SCH (21:15)
[2019-05-11] MEDS ORDERED: VANCOMYCIN PROTOCOL PER PHARMACY IV SCH (21:30)
[2019-05-11] MEDS ORDERED: GLUCAGON 1MG KIT 1 MG ML IM PRN (21:30)
[2019-05-11] MEDS ORDERED: SODIUM CHLORIDE 0.9% 100 ML IV ONE (21:36)
[2019-05-11] MEDS ORDERED: NOREPINEPHRINE BITARTRATE 1 MG/1 ML ML IV ONE (21:36)
[2019-05-11] MEDS ORDERED: SODIUM CHLORIDE 0.9% 250 ML IV ONE (21:43)
[2019-05-11] MEDS ORDERED: ONDANSETRON HCL 4 MG/2 ML VIAL IV PRN (21:45)
[2019-05-11] MEDS ORDERED: SODIUM CHLORIDE 0.9% 1000ML 1,000 ML IV SCH (21:45)
[2019-05-11] MEDS ORDERED: SODIUM CHLORIDE 0.9% 500ML 500 ML IV ONE (21:55)
[2019-05-11] MEDS: SODIUM BICARB 8.4% 50ML SYRINGE IVP SCH (22:00)
[2019-05-11] MEDS ORDERED: VANCOMYCIN 1GM+NS 250ML 250 ML IV SCH (22:00)
[2019-05-11] MEDS ORDERED: PHARMACY COMMUNICATION MISC SCH (22:15)
[2019-05-11] MEDS: IPRATROPIUM/ALBUTEROL SULFATE 3 ML SOLUTION IH SCH (22:16)
[2019-05-11] MEDS: VANCOMYCIN 1GM+NS 250ML 250 ML IV SCH (23:15)
[2019-05-12] VITALS (86 sets, daily range): BP systolic 57–160; BP diastolic 16–120
--- NOTE | 2019-05-12 | NUR ---
ADMISSION [id number] RECEIVED REPORT FROM IGGY MACEDO RN PULMONOLOGY- MIDLEVEL SENIOR PLANNING MANAGER MARYANN AND CARDIOLOGY DR. NICHOLAS NOTIFIED INFORMED OF ELEVATED TROPONIN NO NEW ORDERS RECEIVED. NEW ORDERS RECEIVED FROM SENIOR PLANNING MANAGER NIGEL MENDOZA AND CARRIED OUT. 0000 PT ADMITTED RM 209 CONNECTED TO BEDSIDE MONITOR, ADMISSION DATABASE COMPLETE NO MEDS/BELONGINGS AT BEDSIDE. WILL CONTINUE TO MONITOR PT.
[2019-05-12 00:04] LABS: TROPONIN I 18.62 ng/mL (0.00-0.06)
[2019-05-12] MEDS: SODIUM CHLORIDE 0.9% 1000ML 1,000 ML IV SCH ×2 (00:32→04:11)
[2019-05-12] MEDS: MIDAZOLAM 50MG-0.9% NS 50ML 50 ML IV SCH ×3 (00:41→16:46)
[2019-05-12] MEDS: FENTANYL 1000MCG+NS 100ML IV.SOLN IV SCH ×3 (00:44→16:46)
[2019-05-12] MEDS ORDERED: ASPIRIN 300 MG SUPPOSITORY PR ONE (00:57)
[2019-05-12] MEDS: ASPIRIN 300 MG SUPPOSITORY PR SCH ×2 (01:08→21:45)
[2019-05-12] MEDS: AZITHROMYCIN 500MG+NS 250ML 250 ML IV SCH ×2 (01:15→23:48)
[2019-05-12] MEDS: VANCOMYCIN 1GM+NS 250ML 250 ML IV SCH (01:16)
[2019-05-12] MEDS: MAGNESIUM 2GM PREMIX 50ML 50 ML IV SCH ×3 (02:01→09:26)
[2019-05-12] MEDS ORDERED: SODIUM BICARB 50MEQ 50ML VIAL ONE ×2 (02:06→04:44)
[2019-05-12 02:17] LABS: ABG BASE EXCESS -14.9 mmol/L (-2.0-3.0); ABG HCO3 12.3 mmol/L (21.0-28.0); ABG OXYGEN SATURATION 89.4 % (95.0-99.0); ABG PCO2 34 mmHg (32-45)
[2019-05-12] MEDS: IPRATROPIUM/ALBUTEROL SULFATE 3 ML SOLUTION IH SCH ×6 (02:21→21:56)
[2019-05-12] MEDS: DEXTROSE 50%-WATER 50 ML DISP.SYRIN IV PRN ×4 (02:56→15:55)
[2019-05-12] MEDS: NOREPINEPHRINE 4MG/NS 250ML 250 ML IV SCH ×7 (03:26→15:55)
[2019-05-12 03:56] LABS: HEMATOCRIT 29.2 % (36-48); MEAN CORPUSCULAR HEMOGLOBIN 29.2 pg (27.0-33.0); MEAN CORPUSCULAR HGB CONC 30.8 g/dL (32.0-36.0); MEAN CORPUSCULAR VOLUME 94.8 fL (79-99); NUCLEATED RED BLOOD CELLS 1.1 % (0.0-0.19); PLATELET COUNT (AUTO) 177 K/uL (130-400); RED BLOOD CELL COUNT(AUTO) 3.08 MIL/uL (4.00-5.50); RED CELL DISTRIBUTION WIDTH 20.5 % (11.0-15.5); WHITE BLOOD COUNT (AUTO) 13.9 K/uL (4.8-10.8)
[2019-05-12] MEDS ORDERED: METHYLPREDNISOLONE SOD SUCC 40MG/ML 1ML IVP SCH (04:00)
[2019-05-12 04:13] LABS: ABG BASE EXCESS -17.8 mmol/L (-2.0-3.0); ABG HCO3 11.1 mmol/L (21.0-28.0); ABG PCO2 37 mmHg (32-45)
[2019-05-12] MEDS ORDERED: VASOPRESSIN 40 UNITS in SODIUM CHLORIDE 0.9% 40 ML IV SCH (04:30)
[2019-05-12 04:46] LABS: BAND NEUTROPHILS % (MANUAL) 10 % (0-2); LYMPHOCYTES % (MANUAL) 9 % (22-44); METAMYELOCYTES % 1 % (0-0); MONOCYTES % (MANUAL) 3 % (2-9); SEGMENTED NEUTROPHILS % 77 % (40-70)
[2019-05-12 04:47] LABS: MAN.DIFF COMMENT-IMPRESSION MANUAL DIFFERENTIAL
[2019-05-12] MEDS ORDERED: PHARMACY COMMUNICATION MISC SCH (05:00)
[2019-05-12] MEDS ORDERED: SODIUM BICARB 50MEQ 50ML VIAL IV ONE (05:15)
[2019-05-12] MEDS ORDERED: VASOPRESSIN 20 UNITS/ML 1ML VIAL ONE (05:17)
[2019-05-12 05:29] LABS: ABG BASE EXCESS -11.7 mmol/L (-2.0-3.0); ABG HCO3 14.9 mmol/L (21.0-28.0); ABG OXYGEN SATURATION 86.8 % (95.0-99.0); ABG PCO2 36 mmHg (32-45)
[2019-05-12] MEDS: ZOSYN 3.375GM+NS 50ML 50 ML IV SCH ×3 (05:42→21:48)
[2019-05-12] MEDS: HYDROCORTISONE SOD SUCCINATE 100 MG/2 ML VIAL IV SCH ×3 (05:43→20:16)
[2019-05-12] MEDS ORDERED: SODIUM BICARB 8.4% 50ML SYRING 150 MEQ in STERILE WATER INJ 1000ML BAG 1,000 ML IVP SCH (05:45)
[2019-05-12] MEDS: INSULIN HUMULIN R 100 UNIT/ML 3ML SQ SCH ×4 (05:47→18:00)
[2019-05-12 06:49] LABS: ALBUMIN 1.1 g/dL (3.5-5.0); BILIRUBIN,TOTAL 1.2 mg/dL (0.2-1.0); CREATININE 1.6 mg/dL (0.5-1.5); MAGNESIUM 1.6 mg/dL (1.80-2.40); TOTAL PROTEIN, SERUM 6.4 g/dL (6.0-8.3)
[2019-05-12 07:26] LABS: POTASSIUM 2.8 mmol/L (3.5-5.1); TROPONIN I 16.36 ng/mL (0.00-0.06)
[2019-05-12] MEDS ORDERED: COMPOUND PO MISCELLANEOUS 1 EACH MISC MISC PRN (07:45)
--- NOTE | 2019-05-12 08:00 | NUR ---
Assumed assumed care at 0700. Patient in no apparent distress, intubated and sedated. Dr Blankenship at bedside and made aware of morning ABGs. He made vent changes and ordered ABGs drawn at 1000 and to be notified of results. Electrolytes have been replaced. Will continue to monitor.
[2019-05-12] MEDS ORDERED: POTASSIUM CHLORIDE 20MEQ/100ML 100 ML IV ONE (08:05)
[2019-05-12] MEDS ORDERED: POTASSIUM CHLORIDE 20 MEQ/100 ML BAG IV SCH (08:15)
[2019-05-12] MEDS ORDERED: MAGNESIUM 2GM PREMIX 50ML 50 ML IV SCH (08:15)
[2019-05-12] MEDS ORDERED: POTASSIUM CHLORIDE 20MEQ/100ML 100 ML IV SCH (08:30)
[2019-05-12] MEDS ORDERED: OSELTAMIVIR PHOSPHATE 75 MG CAP NG SCH (09:00)
[2019-05-12] MEDS: HEPARIN SODIUM 5000UNIT/ML 1ML VIAL SQ SCH ×3 (09:00→21:00)
[2019-05-12] MEDS: MEROPENEM 1 GM VIAL IVP SCH ×2 (09:41→16:46)
[2019-05-12] MEDS: FAMOTIDINE/PF 20 MG/2 ML VIAL IV SCH ×2 (09:41→21:48)
[2019-05-12 10:24] LABS: ABG BASE EXCESS -15.4 mmol/L (-2.0-3.0); ABG HCO3 13.1 mmol/L (21.0-28.0); ABG OXYGEN SATURATION 95.7 % (95.0-99.0); ABG PCO2 40 mmHg (32-45)
[2019-05-12 11:37] LABS: TROPONIN I 12.42 ng/mL (0.00-0.06)
[2019-05-12 12:53] LABS: PROTHROMBIN TIME 31.3 SEC (9.6-11.6)
[2019-05-12 12:54] LABS: INR 3.02 (0.85-1.15); PARTIAL THROMBOPLASTIN TIME 69.9 SEC (26.3-35.5)
--- NOTE | 2019-05-12 13:00 | NUR ---
PT/PTT ordered for PICC line placement at aproximately 0800. Resulted at PTT>120 at 9:15. Dr Blankenship made aware at that time and 2 units of FFP were ordered. When environmental compliance inspector diana 10:00 cardiac panel she mentioned the previous blood draw was "watery." A PT/PTT redraw was requested at that time (10:00). Redraw resulted at 12:54. PTT on redraw was 69.9, INR 3.02 (from 3.98). Will administer first unit of FFP as soon as available.
[2019-05-12] MEDS: OSELTAMIVIR PHOSPHATE 300 MG, WATER FOR INJECTION,STERILE 10 ML, COMPOUNDING VEHICLE SF... PO SCH ×6 (13:44→23:47)
[2019-05-12] MEDS ORDERED: COMPOUND IV REFRIGERATED 1 EACH IVSOLN MISC PRN (14:00)
[2019-05-12] MEDS ORDERED: CALCIUM GLUCONATE 1 GM/10 ML VIAL IV SCH (14:30)
[2019-05-12] MEDS ORDERED: CALCIUM GLUCONATE 1 GM in SODIUM CHLORIDE 0.9% 100 ML IV SCH (14:45)
--- NOTE | 2019-05-12 15:00 | NUR ---
marjan note pt currently in ICU, intubated, vent,no family at bedside, will followup with family when available. Addendum: 05/12/19 at 1738 by ROLA YOON CM Amended: Links added.
--- NOTE | 2019-05-12 15:00 | NUR ---
FFP transfusing at this time.
[2019-05-12] MEDS ORDERED: SODIUM CHLORIDE 0.9% 250 ML IV ONE (15:33)
[2019-05-12] MEDS ORDERED: PHENTOLAMINE MESYLATE 5 MG VIAL ICAV SCH (15:45)
[2019-05-12] MEDS: CALCIUM GLUCONATE 2 GM in SODIUM CHLORIDE 0.9% 100 ML IV SCH ×2 (16:26→20:20)
[2019-05-12 16:38] LABS: TROPONIN I 12.8 ng/mL (0.00-0.06)
[2019-05-12 16:41] LABS: MAGNESIUM 3.5 mg/dL (1.80-2.40); POTASSIUM 3.2 mmol/L (3.5-5.1)
[2019-05-12] MEDS ORDERED: LACTATED RINGERS 1000ML IV SCH (17:13)
[2019-05-12] MEDS ORDERED: LACTATED RINGERS 1000ML 1,000 ML IV ONE ×2 (17:14→17:15)
[2019-05-12 17:26] LABS: ABG BASE EXCESS -12.6 mmol/L (-2.0-3.0); ABG HCO3 13.9 mmol/L (21.0-28.0); ABG OXYGEN SATURATION 97.5 % (95.0-99.0); ABG PCO2 34 mmHg (32-45)
[2019-05-12] MEDS ORDERED: EPINEPHRINE 10 MG in SODIUM CHLORIDE 0.9% 250 ML IV SCH (17:30)
--- NOTE | 2019-05-12 17:30 | NUR ---
Patient hemodynamically declining since 1700. Dr Blankenship has been aware of status and of ABG results. 500LR bolus ordered. No other orders given. Dr Blankenship coming in to place CVC.
[2019-05-12] MEDS ORDERED: SODIUM CHLORIDE 0.9% 500ML 500 ML IV ONE (17:59)
--- NOTE | 2019-05-12 18:30 | NUR ---
Dr Blankenship in at approximately [address] reviewed CXR and stated CVC was ok to use. Dr Blankenship ordered Dobutamine drip to be started and LASIX 60MG IVP once.
[2019-05-12] MEDS ORDERED: NOREPINEPHRINE BITARTRATE 32 MG in SODIUM CHLORIDE 0.9% 250 ML IV STA (18:33)
[2019-05-12 18:34] LABS: PARTIAL THROMBOPLASTIN TIME 46.5 SEC (26.3-35.5)
[2019-05-12 18:45] LABS: INR 2.07 (0.85-1.15); PROTHROMBIN TIME 21.7 SEC (9.6-11.6)
[2019-05-12] MEDS ORDERED: DOBUTAMINE 250MG/D5 250ML 250 ML IV ONE ×2 (18:54→18:57)
[2019-05-12] MEDS ORDERED: FUROSEMIDE 10 MG/ML 10ML VIAL ONE (18:57)
--- NOTE | 2019-05-12 19:00 | NUR ---
Hand off report given to oncoming shift at bedside. Levophed is running on max rate. Dobutamine is running at 10mcg/kg/min, Vasopressin at 0.04units/min.
[2019-05-12] MEDS ORDERED: FUROSEMIDE 10 MG/ML 10ML VIAL IVP SCH (19:15)
[2019-05-12] MEDS: VANCOMYCIN 0.75 GM in SODIUM CHLORIDE 0.9% 250 ML IV SCH (20:20)
[2019-05-12] MEDS: SODIUM BICARB 8.4% 50ML SYRINGE IVP SCH (22:00)
[2019-05-12 22:02] LABS: INR 1.77 (0.85-1.15); PARTIAL THROMBOPLASTIN TIME 47.4 SEC (26.3-35.5); PROTHROMBIN TIME 18.7 SEC (9.6-11.6)
[2019-05-12 22:36] LABS: TROPONIN I 16.74 ng/mL (0.00-0.06)
[2019-05-12 23:09] LABS: MAGNESIUM 2.9 mg/dL (1.80-2.40); PHOSPHORUS 6.7 mg/dL (2.5-4.9); POTASSIUM 3.2 mmol/L (3.5-5.1)
[2019-05-13] VITALS (109 sets, daily range): BP systolic 72–247; BP diastolic 17–99
[2019-05-13] MEDS ORDERED: POTASSIUM CHLORIDE 20MEQ/100ML 100 ML IV ONE (00:16)
[2019-05-13] MEDS: MEROPENEM 1 GM VIAL IVP SCH ×3 (00:37→16:45)
[2019-05-13] MEDS: DOBUTAMINE 250MG/D5 250ML 250 ML IV SCH ×5 (00:37→22:46)
[2019-05-13] MEDS: HYDROCORTISONE SOD SUCCINATE 100 MG/2 ML VIAL IV SCH ×4 (01:32→12:30)
[2019-05-13] MEDS: IPRATROPIUM/ALBUTEROL SULFATE 3 ML SOLUTION IH SCH ×6 (02:24→21:57)
[2019-05-13] MEDS: [UNRECOGNIZED DRUG - OTHER] IV PRN (02:37)
[2019-05-13] MEDS: NOREPINEPHRINE IV PRN (02:37)
[2019-05-13 04:13] LABS: BASOPHILS % (AUTO) 0.3 % (0.0-5.0); HEMATOCRIT 25.1 % (36-48); LYMPHOCYTES % (AUTO) 8.5 % (21.0-51.0); MEAN CORPUSCULAR HEMOGLOBIN 28.7 pg (27.0-33.0); MEAN CORPUSCULAR HGB CONC 31.5 g/dL (32.0-36.0); MEAN CORPUSCULAR VOLUME 91.3 fL (79-99); MONOCYTES % (AUTO) 1.2 % (3.0-13.0); NEUTROPHILS % (AUTO) 87.4 % (40.0-77.0); NUCLEATED RED BLOOD CELLS 0.5 % (0.0-0.19); PLATELET COUNT (AUTO) 100 K/uL (130-400); RED BLOOD CELL COUNT(AUTO) 2.75 MIL/uL (4.00-5.50); RED CELL DISTRIBUTION WIDTH 19.9 % (11.0-15.5)
[2019-05-13] MEDS: ZOSYN 3.375GM+NS 50ML 50 ML IV SCH (04:55)
[2019-05-13 05:00] LABS: ALBUMIN 1.3 g/dL (3.5-5.0); BILIRUBIN,TOTAL 1.4 mg/dL (0.2-1.0); POTASSIUM 3.5 mmol/L (3.5-5.1); TOTAL PROTEIN, SERUM 5.9 g/dL (6.0-8.3)
[2019-05-13 05:02] LABS: TROPONIN I 21.76 ng/mL (0.00-0.06)
[2019-05-13] MEDS: INSULIN HUMULIN R 100 UNIT/ML 3ML SQ SCH ×4 (06:00→18:00)
[2019-05-13] MEDS: HEPARIN SODIUM 5000UNIT/ML 1ML VIAL SQ SCH ×3 (08:11→20:48)
[2019-05-13] MEDS: FAMOTIDINE/PF 20 MG/2 ML VIAL IV SCH ×2 (08:36→20:48)
[2019-05-13] MEDS: DEXTROSE 50%-WATER 50 ML DISP.SYRIN IV PRN ×3 (08:39→20:28)
[2019-05-13] MEDS: FLUCONAZOLE 200 MG/NS 100 ML 100 ML IV SCH (08:59)
[2019-05-13] MEDS: OSELTAMIVIR PHOSPHATE 300 MG, WATER FOR INJECTION,STERILE 10 ML, COMPOUNDING VEHICLE SF... PO SCH ×6 (09:01→22:46)
[2019-05-13] MEDS: SODIUM BICARB 50MEQ 50ML VIAL IV SCH (09:30)
--- NOTE | 2019-05-13 09:30 | NUR ---
Dr Patrick at bedside talking to family.
[2019-05-13 10:30] LABS: ABG BASE EXCESS -8.6 mmol/L (-2.0-3.0); ABG HCO3 17.2 mmol/L (21.0-28.0); ABG OXYGEN SATURATION 95.4 % (95.0-99.0); ABG PCO2 36 mmHg (32-45)
[2019-05-13 10:50] LABS: PLATELET COUNT (AUTO) 71 K/uL (130-400)
[2019-05-13] MEDS ORDERED: CALCIUM GLUCONATE 2 GM in SODIUM CHLORIDE 0.9% 100 ML IV SCH (11:00)
--- NOTE | 2019-05-13 11:00 | NUR ---
Dr Blankenship at bedside talking to family
[2019-05-13 11:08] LABS: INR 2.03 (0.85-1.15); PARTIAL THROMBOPLASTIN TIME 47.2 SEC (26.3-35.5); PROTHROMBIN TIME 21.3 SEC (9.6-11.6)
[2019-05-13] MEDS ORDERED: CALCIUM GLUCONATE 1 GM in SODIUM CHLORIDE 0.9% 50 ML IV PRN (11:15)
[2019-05-13 11:36] LABS: TROPONIN I 18.31 ng/mL (0.00-0.06)
[2019-05-13 12:07] LABS: D-DIMER > 10000 ng/mL (0-500)
--- NOTE | 2019-05-13 14:19 | NUR ---
Family has decided to make patient DNR. They have been refusing diagnostics and labs. The family plans to withdraw care as soon as home arrangements have been made.
[2019-05-13] MEDS ORDERED: AZITHROMYCIN 500MG+NS 250ML 250 ML IV SCH (15:00)
[2019-05-13] MEDS: FUROSEMIDE 10 MG/ML 4ML VIAL IV SCH (15:00)
[2019-05-13] MEDS ORDERED: PHENYLEPHRINE HCL 100 MG in SODIUM CHLORIDE 0.9% 240 ML IV PRN (15:15)
--- NOTE | 2019-05-13 15:25 | NUR ---
Informed Dr Blankenship of patient's blood pressure. [place]arien-synephrine ordered.
[2019-05-13] MEDS: VANCOMYCIN 0.75 GM in SODIUM CHLORIDE 0.9% 250 ML IV SCH (16:00)
[2019-05-13 16:45] LABS: FIBRINOGEN 157 mg/dL (180-350)
--- NOTE | 2019-05-13 19:10 | NUR ---
ASSESSMENT PATIENT UNRESPONSIVE OFF SEDATION FOR GREATER THAN 24 HRS. PATIENT RECEIVED TACHYCARDIC RATE 130's. VENTILATED WITH SPO2 95-98% ON 60% FIO2. SEE VENTILATOR FLOW SHEET FOR SETTINGS. PATIENT RESPIRATIONS AGONAL WITH RESP RATE 30'S. DOBUTAMINE, VASOPRESSIN, LEVOPHED, AND NEOSYNEPHRINE INFUSING TO CVC. PATIENT UPPER AND LOWER EXTREMITIES DUSKY/MOTTLED WITH FLUID FILLED BLISTERS ON UPPER EXTREMITIES. ANURIC. ASSESSMENT COMPLETED.
[2019-05-14] VITALS (32 sets, daily range): BP systolic 79–169; BP diastolic 48–133
[2019-05-14] MEDS: DEXTROSE 50%-WATER 50 ML DISP.SYRIN IV PRN ×3 (00:42→02:13)
[2019-05-14] MEDS: HYDROCORTISONE SOD SUCCINATE 100 MG/2 ML VIAL IV SCH ×2 (00:43→05:49)
[2019-05-14] MEDS: NOREPINEPHRINE IV PRN (00:44)
[2019-05-14] MEDS: [UNRECOGNIZED DRUG - OTHER] IV PRN (00:44)
[2019-05-14] MEDS: MEROPENEM 1 GM VIAL IVP SCH ×2 (00:56→08:38)
[2019-05-14] MEDS: IPRATROPIUM/ALBUTEROL SULFATE 3 ML SOLUTION IH SCH ×3 (01:27→09:46)
[2019-05-14] MEDS: FUROSEMIDE 10 MG/ML 4ML VIAL IV SCH (02:14)
[2019-05-14] MEDS: DOBUTAMINE 250MG/D5 250ML 250 ML IV SCH (05:15)
[2019-05-14] MEDS: INSULIN HUMULIN R 100 UNIT/ML 3ML SQ SCH ×2 (06:00)
--- NOTE | 2019-05-14 07:00 | NUR ---
REPORT REPORT GIVEN TO LUISA PINO. PATIENT REMAINS UNRESPONSIVE, TACHYCARDIC, AND TACHYPNEIC/AGONAL. DOBUTAMINE, VASOPRESSIN, LEVOPHED, AND CARLOS A-SYNEPHRINE INFUSING. UPDATED ON PATIENT CONDITION.
[2019-05-14] MEDS: FAMOTIDINE/PF 20 MG/2 ML VIAL IV SCH (08:38)
[2019-05-14] MEDS: SODIUM BICARB 50MEQ 50ML VIAL IV SCH (08:39)
[2019-05-14] MEDS: HEPARIN SODIUM 5000UNIT/ML 1ML VIAL SQ SCH (08:39)
[2019-05-14] MEDS: FLUCONAZOLE 200 MG/NS 100 ML 100 ML IV SCH (08:39)
[2019-05-14] MEDS: OSELTAMIVIR PHOSPHATE 300 MG, WATER FOR INJECTION,STERILE 10 ML, COMPOUNDING VEHICLE SF... PO SCH ×3 (08:39)
--- NOTE | 2019-05-14 09:34 | NUR ---
Assumed care 0700. NO change in patient condition. Family has chosen to withdraw care. Dr Blankenship aware. Hospitalist aware.
[2019-05-14] MEDS: FENTANYL 1000MCG+NS 100ML IV.SOLN IV SCH (10:00)
--- NOTE | 2019-05-14 10:23 | NUR ---
Patient extubated at this time. Fentanyl drip and versed drip for comfort measures as per Dr Blankenship.
--- NOTE | 2019-05-14 10:40 | NUR ---
PRONOUNCEMENT CALLED TO ROOM PT HAS BEEN EXTUBATED AND IS DNR. PT IS UNRESPONSIVE, NO HEART TONES, NO RESPIRATIONS, PUPILS FIXED AND NON REACTIVE. CN IN ATTENDANCE, PT PRONOUNCED AT THIS TIME.
== END 2019-05-14 10:40 | disposition expired | DRG 871 ==
LOC: EDH 18:50 → EDHIP 18:51 → 2BH 23:54
PROVIDERS: ADMIT Internal Medicine; ATTEND Internal Medicine
PROC: 30233K1 Transfusion of Nonautologous Frozen Plasma into Peripheral Vein, Percutaneous Approach (ICD-10-PCS; principal; 2019-05-12)
PROC: 5A1945Z Respiratory Ventilation, 24-96 Consecutive Hours (ICD-10-PCS; 2019-05-12)
PROC: 0BH17EZ Insertion of Endotracheal Airway into Trachea, Via Natural or Artificial Opening (ICD-10-PCS; 2019-05-12)
DX: A41.9 Sepsis, unspecified organism (principal); R65.21 Severe sepsis with septic shock; J96.01 Acute respiratory failure with hypoxia; I21.4 Non-ST elevation (NSTEMI) myocardial infarction; G93.41 Metabolic encephalopathy; D65 Disseminated intravascular coagulation [defibrination syndrome]; J15.9 Unspecified bacterial pneumonia; N17.0 Acute kidney failure with tubular necrosis; I82.629 Acute embolism and thrombosis of deep veins of unspecified upper extremity; N18.3 Chronic kidney disease, stage 3 (moderate); I12.9 Hypertensive chronic kidney disease with stage 1 through stage 4 chronic kidney disease, or unspecified chronic kidney disease; D64.9 Anemia, unspecified; E11.22 Type 2 diabetes mellitus with diabetic chronic kidney disease; E11.51 Type 2 diabetes mellitus with diabetic peripheral angiopathy without gangrene; E66.9 Obesity, unspecified; E83.42 Hypomagnesemia; E83.51 Hypocalcemia; E86.0 Dehydration; E87.6 Hypokalemia; K76.0 Fatty (change of) liver, not elsewhere classified; N28.1 Cyst of kidney, acquired; R57.0 Cardiogenic shock; Z66 Do not resuscitate; Z68.36 Body mass index [BMI] 36.0-36.9, adult; Z98.51 Tubal ligation status
CPT/HCPCS: 31500; 36415; 36430; 36600; 70450; 71045; 74176; 80048; 80053; 80061; 81001; 82150; 82435; 82550; 82803; 82947; 82948; 83605; 83690; 83735; 83874; 83880; 84100; 84132; 84145; 84295; 84484; 85018; 85025; 85378; 85384; 85610; 85730; 86140; 86850; 86900; 86901; 86927; 87040; 87071; 87077; 87088; 87186; 87205; 87449; 87486; 87581; 87633; 87641; 87798; 87804; 87880; 93005; 93306; 94002; 94003; 94640; 94664; 99291; C1751; G0378; J0171; J0330; J0456; J0610; J1250; J1450; J1644; J1720; J1940; J2185; J2250; J2370; J2543; J2704; J2760; J2930; J3010; J3370; J3475; J3480; J3490; J7030; J7040; J7070; J7120; P9017